=== PATIENT | male | born 1970 | race Two or more races ===

== ENCOUNTER 2024-09-02 03:58 | Emergency (ER) | payer MEDICAID, SELFPAY ==
[2024-09-02 03:59] VITALS: BMI 33.3
[2024-09-02 04:10] VITALS: BP 151/81; PULSE 83; RESP 18; TEMP 36.6; O2SAT 98
--- NOTE | 2024-09-02 04:10 | PD.EDEXREM ---
ED Extremity Problem RME/HPI General Chief complaint: Extremity Problem,Nontraumatic Stated complaint: INGROWN TOENAILS Time Seen by Provider: 09/02/24 04:03 Arrival date/time: 09/02/24 03:58 54 year old male present to emergency room with c/o of toe pain for 3 days. uptodate with tetanus LOCATION: toe SEVERITY: Symptoms are described as being severe with limitations on activities of daily living QUALITY: Symptoms are described as being dull or achy CONTEXT: unknown DURATION/TIMING: The symptoms started approximately 3 days ago and have been constant this then. ASSOCIATED SYMPTOMS: The patient is unable to identify any other associated symptoms. MODIFYING FACTORS: The patient is unable to identify any alleviating or aggravating symptoms. PERTINENT ROS: no fevers, no headache, no neck or chest pain, no unexplained nausea or vomiting, no focal neurological deficits REVIEW OF SYSTEMS: See History of Present Illness - with the exception of those mentioned in the history of present illness, all other systems reviewed and reported as negative GENERAL: In general the patient is awake, interactive, in an emergency department gurney. HEAD/EYES/EARS/NOSE/THROAT: normo-cephalic, atraumatic, mucus membranes are moist, anicteric, palpebral conjunctiva is pink, trachea is midline. NEUROLOGICAL: cranio-facial features are symmetric, moves all four extremities equally without obvious limitations or weakness. EXTREMITY: Left greater toe + dry blood + ingrown nail noted. + tenderness. no tenderness to palpation over the long bones or large joints of the bilateral upper and lower extremities, no joint swelling, no unilateral leg swelling and no peripheral edema. SKIN: warm, dry, well-perfused, no jaundice, no rash, no telangiectasias or petechia. PSYCH: calm, cooperative, no evidence of psychosis or agitation Related Data Home Medications ?Medication ?Instructions ?Recorded ?Confirmed cyclobenzaprine 10 mg tablet 10 mg PO BID PRN Muscle Pain 03/09/22 03/09/22 furosemide 40 mg tablet (Lasix) 40 mg PO QDAY 03/09/22 03/09/22 spironolactone 100 mg tablet 100 mg PO QDAY 03/09/22 03/09/22 Previous Rx's ?Medication ?Instructions ?Recorded tramadol 50 mg tablet 50 mg PO Q8H PRN pain #20 tabs 08/06/23 folic acid 1 mg tablet 1 mg PO QDAY #30 tabs 02/08/24 insulin glargine 100 unit/mL 40 unit (0.4 mL) subcut QDAY #10 mL 02/08/24 subcutaneous solution (Lantus U-100 Insulin) insulin lispro 100 unit/mL 10 unit (0.1 mL) subcut TIDWMEAL 02/08/24 subcutaneous solution #10 mL lactulose 20 gram/30 mL oral 20 g (30 mL) PO TID #3,000 mL 02/08/24 solution metformin 500 mg tablet 1,000 mg (2 x 500 mg) PO BIDWMEAL 02/08/24 #120 tabs thiamine HCl (vitamin B1) 100 mg 100 mg PO QDAY #30 tabs 02/08/24 tablet cephalexin 500 mg tablet 500 mg PO QID #40 tabs 09/02/24 Allergies Allergy/AdvReac Type Severity Reaction Status Date / Time No Known Allergies Allergy Verified 09/02/24 04:02 Course Course Course Narrative: + Ingrown?Left Great Toenail. This is a?recurrent?problem for the patient. Nail Removed not indicated since patient is dm and risk of increase infection outweigh the benefit. pt should follow up with podiatry first dose oral antibiotic Disposition: Discharge home with strict return precautions and advice to follow up with primary care doctor in next 24-48 hours for further evaluation. Quality Measures none Orders Category Date Time Status cephALEXin [Keflex] Med 09/02/24 04:08 Discontinued 500 mg PO X1 ONE Vital Signs Vital signs: Vital Signs Temperature 97.9 F 09/02/24 04:10 Pulse Rate 83 09/02/24 04:10 Respiratory Rate 18 09/02/24 04:10 Blood Pressure 151/81 H 09/02/24 04:10 Pulse Oximetry (%) 98 09/02/24 04:10 Oxygen Delivery Method Room Air 09/02/24 04:10 Extremity Problem Patient data External records reviewed:: [facility] previous records Clinical information provided by:: patient Social determinants that could affect healthcare access:: none (none) Patient has the following chronic illnesses:: dm How is presenting disease/condition affected by chronic disease/condition?: exacerbated by Evaluation data The following diagnostics were reviewed and interpreted by me:: other (specify) Lab and/or radiology exams considered but not ordered:: none Interpretation Summary: none Medications / Prescriptions Medications or Prescriptions considered but not ordered:: none Medication administrations:: Medication Administration History Discontinued Medications Cephalexin HCl (Cephalexin 250 Mg Capsule) 500 mg PO X1 ONE Stop: 09/02/24 04:09 as state above Consultations Consultation(s) initiated? (list below): No Diagnosis Most likely diagnosis given after review of the tests above:: infected ingrown toe nail Admission Indicated Admission indicated?: not indicated Admission Request Was there a request for admission?: No Disposition Plan Disposition Plan: Discharge Discharge Attestation Discharge Attestation: The patient and all family members were given an opportunity to ask questions and understood the discharge instructions. Discharge instructions specifically effects, indications for sooner follow up or return to the emergency department, and the expected course of current diagnosis. Patient condition: Stable Discharge Plan Plan Patient Disposition: HOME (Self Care) Health Concerns: Follow with PMD as directed Take tylenol or motrin as need Return to ED if sx worsen Prescriptions/Referrals Prescriptions/Med Rec: New cephalexin 500 mg tablet 500 mg PO QID Qty: 40 0RF No Action cyclobenzaprine 10 mg Tablet 10 mg PO BID PRN (Reason: Muscle Pain) furosemide [Lasix] 40 mg Tablet 40 mg PO QDAY spironolactone 100 mg Tablet 100 mg PO QDAY tramadol 50 mg tablet 50 mg PO Q8H PRN (Reason: pain) Qty: 20 0RF folic acid 1 mg tablet 1 mg PO QDAY Qty: 30 0RF thiamine HCl (vitamin B1) 100 mg tablet 100 mg PO QDAY Qty: 30 0RF insulin glargine [Lantus U-100 Insulin] 100 unit/mL solution 40 unit subcut QDAY Qty: 10 0RF insulin lispro 100 unit/mL solution 10 unit subcut TIDWMEAL Qty: 10 0RF metformin 500 mg Tablet 1,000 mg PO BIDWMEAL Qty: 120 0RF lactulose 20 gram/30 mL solution 20 g PO TID Qty: 3000 0RF Problem List Clinical Impression: Ingrown left greater toenail Patient/Caregiver Discharge Instructions Education Materials: ED Toenail Ingrown Infec Abx Onl Print Language: Armenian Stand Alone Forms: Tammy Award Info., Patient Portal Info Letter
[2024-09-02] MEDS: cephALEXin 250 MG CAPSULE 500 MG PO (04:23)
== END 2024-09-02 04:26 | disposition home or self-care (01) ==
PROVIDERS: Emergency Provider Emergency Medicine; PCP Family Medicine
DX: L60.0 Ingrowing nail (principal)
CPT/HCPCS: 99282; A9270

== ENCOUNTER 2025-02-21 08:17 | Emergency (ER) | payer MEDICAID, SELFPAY ==
[2025-02-21 08:27] VITALS: BP 149/79; PULSE 86; RESP 20; TEMP 36.9; O2SAT 97; BMI 28.1
--- NOTE | 2025-02-21 08:36 | XR_ITS ---
Examination: CT brain head without contrast. 2-D sagittal coronal reconstructions Date and time of exam:February 21, 2025 0957 hours INDICATIONS: Headaches dizziness weakness beginning 3 days ago CTDI: vol (mGy):49 DLP: (mGycm):988 Technique: Multiple CT axial sections of the brain have been obtained, 5 mm slice thickness. Contrast has not been administered. 2-D sagittal, coronal reconstructions have been obtained Low dose protocols were performed. One or more of the following dose reduction techniques were used; automated exposure control, adjustment of the mA and/or KV according to patient size, use of iterative reconstruction technique. Findings: No significant ventricular enlargement. Frontal atrophy Intra-axial or extra-axial hemorrhage density is not seen. No mass effect or midline shift Basal cisterns are not remarkable. Fourth ventricle is midline. Cranial vault intact. Impression: Negative for acute hemorrhage, mass effect or midline shift Advise clinical correlation follow-up accordingly
--- NOTE | 2025-02-21 08:36 | EKG_ITS ---
[facility] Test Date: 2025-02-21 Pat Name: CARMELINA FORDE Department: Room: - Gender: Male Technician Test Systems: : 1970 Requested By: Armaan Mccain (CHLOE) Order Number: [id number] Reading MD: Armaan Mccain (CHLOE) Measurements Intervals [place] Rate: 81 P: 48 MA: 193 QRS: 20 QRSD: 110 T: 49 QT: 393 QTc: 457 Interpretive Statements SINUS RHYTHM INFERIOR MYOCARDIAL INFARCTION , PROBABLY OLD [40+ ms Q WAVE AND/OR ST/T ABNORMALITY IN II/aVF] Compared to ECG 08/06/2023 12:06:06 No significant changes /store/S0/[id number]/[id number].pdf
--- NOTE | 2025-02-21 08:37 | PD.EDRME ---
Rapid Medical Screening Exam RME Arrival date/time: 02/21/25 08:17 54-year-old male alcoholic presents to the emergency department today for complaints of headache, generalized weakness, nausea and vomiting Chief Complaint: Weakness Vital signs: Vital Signs Temperature 98.5 F 02/21/25 08:27 Pulse Rate 86 02/21/25 08:27 Respiratory Rate 20 02/21/25 08:27 Blood Pressure 149/79 H 02/21/25 08:27 Pulse Oximetry (%) 97 02/21/25 08:27 Oxygen Delivery Method Room Air 02/21/25 08:27
[2025-02-21 09:09] LABS: Collection Type, Urine Clean Catch
[2025-02-21 09:19] LABS: Bacteria,Urine Rare; Bilirubin,Urine Negative (Negative); Blood,Urine Negative (Negative); Clarity,Urine Clear (Clear/Hazy); Color,Urine Yellow (Lt Yel-Yel); Glucose, Urine 4+ (Negative); Ketones,Urine Negative (Negative); Leukocyte Esterase,Urine Negative (Negative); Nitrite,Urine Negative (Negative); PH,Urine 6.5 (5.0-7.0); Protein,Urine Negative (Neg - Trace); RBC,Urine 1 /hpf (0-3); Specific Gravity,Urine 1.016 (1.001-1.035); Squamous Epithelial Cell,Urine < 1 /hpf (0-5); Urobilinogen,Urine Negative mg/dL (0.0-1.0); WBC,Urine < 1 /hpf (0-5)
[2025-02-21 09:22] LABS: Amphetamine/Methamp Scrn,U Negative (Negative); Barbiturate Screen,Urine Negative (Negative); Benzodiazepines Screen,Urine Negative (Negative); Benzoylecgonine Screen, Ur Negative (Negative); Fentanyl Screen,Urine Negative (Negative); Opiate Screen,Urine Negative (Negative); THC Screen,Urine Negative (Negative)
[2025-02-21 10:23] LABS: Base Excess, Venous 7 (-3-3); O2 Saturation, Venous 99 % (96-97); PCO2, Venous 26 mmHg (36-56); PO2, Venous 147 mmHg (15-58); pH, Venous 7.64 (7.33-7.66)
[2025-02-21 10:27] LABS: Basophils # (Auto) 0.1 Thou/mm3 (0.0-0.2); Basophils % (Auto) 2 % (0-2.5); Eosinophils # (Auto) 0.1 Thou/mm3 (0.0-0.5); Eosinophils % (Auto) 2 % (0-10); Hematocrit 36.3 % (41.0-53.0); Immature Granulocytes % (Auto) 0 % (0-0); Lymphocytes # (Auto) 0.7 Thou/mm3 (1.0-4.8); Lymphocytes % (Auto) 31 % (10-50); Mean Corpuscular HGB Conc 35.8 g/dl (31.0-37.0); Mean Corpuscular Hemoglobin 29.5 pg (25.0-35.0); Mean Corpuscular Volume 83 fL (80-100); Monocytes # (Auto) 0.3 Thou/mm3 (0.0-0.8); Monocytes % (Auto) 13 % (0-12); Neutrophils # (Auto) 1.1 Thou/mm3 (1.8-7.7); Neutrophils % (Auto) 51 % (37-80); Nucleated Red Blood Cell % 0 /100 WBC (0); RDW Standard Deviation 53.7 fL (35.1-43.9)
[2025-02-21 10:44] LABS: INR 1.4 (0.9-1.3); Partial Thromboplastin Time 31.4 Seconds (22.0-36.0); Prothrombin Time 15.1 Seconds (9.0-12.2)
[2025-02-21 10:46] LABS: B-Type Natriuretic Peptide < 20 pg/mL (0-100); White Blood Count 2.1 Thou/mm3 (3.8-10.6)
[2025-02-21 10:47] LABS: Platelet Count 11 Thou/mm3 (140-440)
[2025-02-21 11:08] LABS: Alanine Aminotransferase 36 U/L (10-49); Albumin, Serum 3.4 gm/dL (3.5-5.0); Alcohol, Blood Medical 374.8 mg/dL (0-10.0); Alkaline Phosphatase 201 U/L (46-116); Anion Gap 12 (7-16); Aspartate Amino Transferase 75 U/L (0-34); BUN/Creatinine Ratio 6 Ratio (12-20); Bilirubin,Total 3.9 mg/dL (0.3-1.2); Blood Urea Nitrogen < 5 mg/dL (9-23); Calcium 8.4 mg/dL (8.3-10.6); Calcium (Corrected) 8.9 mg/dL (8.5-10.1); Carbon Dioxide 27.5 mMol/L (20.0-31.0); Chloride 96 mMol/L (98-107); Creatinine (Component) 0.8 mg/dL (0.6-1.3); Globulin 3.5 gm/dL (2.3-3.5); Glucose 383 mg/dL (74-106); Magnesium 1.8 mg/dL (1.6-2.6); Osmolality,Calculated 283 (275-295); Potassium 3.6 mMol/L (3.4-5.1); Sodium 135 mMol/L (136-145); Total Protein 6.9 gm/dL (5.7-8.2); Troponin I < 0.020 ng/mL (0.0-0.045); eGFR > 60 See Note
[2025-02-21 11:21] LABS: Path Review Blood Smear Sent to Pathologist; Slide Review Platelets confirmed
[2025-02-21 11:41] LABS: Hepatitis A Antibody IgM Non Reactive (Non React); Hepatitis B Core Antibody IgM Non Reactive (Non React); Hepatitis B Surface Antigen Non Reactive (Non React); Hepatitis C Antibody Non Reactive (Non React)
--- NOTE | 2025-02-21 12:33 | PD.EDWEAK ---
ED Weakness RME/HPI General Chief complaint: Weakness Stated complaint: Weakness, dizziness, dehydrated X 8 days Time Seen by Provider: 02/21/25 12:16 Arrival date/time: 02/21/25 08:17 RME / HPI RME / HPI Narrative: 54-year-old male alcoholic presents to the emergency department today for complaints of headache, generalized weakness, nausea and vomiting. This been ongoing for the last 8 days. Patient is known diabetic and alcoholic. Last drink today consuming more than 3 beers this morning. Patient is denying any gum bleeding, denies any vomiting blood, denies any bleeding per rectum. Patient denies any other complaints no medications taken prior to arrival Related Data Home Medications ?Medication ?Instructions ?Recorded ?Confirmed cyclobenzaprine 10 mg tablet 10 mg PO BID PRN Muscle Pain 03/09/22 03/09/22 furosemide 40 mg tablet (Lasix) 40 mg PO QDAY 03/09/22 03/09/22 spironolactone 100 mg tablet 100 mg PO QDAY 03/09/22 03/09/22 Previous Rx's ?Medication ?Instructions ?Recorded tramadol 50 mg tablet 50 mg PO Q8H PRN pain #20 tabs 08/06/23 folic acid 1 mg tablet 1 mg PO QDAY #30 tabs 02/08/24 insulin glargine 100 unit/mL 40 unit (0.4 mL) subcut QDAY #10 mL 02/08/24 subcutaneous solution (Lantus U-100 Insulin) insulin lispro 100 unit/mL 10 unit (0.1 mL) subcut TIDWMEAL 02/08/24 subcutaneous solution #10 mL lactulose 20 gram/30 mL oral 20 g (30 mL) PO TID #3,000 mL 02/08/24 solution metformin 500 mg tablet 1,000 mg (2 x 500 mg) PO BIDWMEAL 02/08/24 #120 tabs thiamine HCl (vitamin B1) 100 mg 100 mg PO QDAY #30 tabs 02/08/24 tablet cephalexin 500 mg tablet 500 mg PO QID #40 tabs 09/02/24 pantoprazole 40 mg tablet,delayed 40 mg PO QDAY #10 tabs 02/21/25 release (Protonix) prednisone 50 mg tablet 50 mg PO QDAY #7 tabs 02/21/25 Allergies Allergy/AdvReac Type Severity Reaction Status Date / Time No Known Allergies Allergy Verified 02/21/25 08:24 Review of Systems Review of Systems Narrative Review of Systems: Review of system reviewed and within normal limits except mentioned in HPI ED Exam Narrative Physical exam: VITAL SIGNS: Reviewed. GENERAL APPEARANCE: Alert and interactive, follows commands, no acute distress, HEAD AND FACE: Non-traumatic. ENT: PERRL, pink conjunctivitis, eyelid no trauma, Mucous membrane moist. NECK: Supple, nontender, no nuchal rigidity. CHEST: No tenderness, no crepitus, no paradoxical movement, no retractions. LUNGS: Clear, well ventilated, symmetric, no rales, no wheezing, no ronchi, no stridor, good breath sounds bilaterally. HEART: Regular rate, regular rhythm, no murmur, no gallops. ABDOMEN: Soft, positive bowel sounds, nondistended, no guarding, nontender, no rebound, no masses, RECTAL: Deferred. GENITAL: Deferred. NEUROLOGICAL: Gross motor function intact sensory function intact, Appropriate for age. MUSCULOSKELETAL: low back nontender, full range of motion. EXTREMITIES: Nontender, full range of motion. SKIN: Color pink, dry, no rash, no lacerations, no abrasions, no contusions. LYMPHATICS: Deferred. 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 02/21/25 08:36 Active EKG (ED ONLY) *Do not use* NOW Care 02/21/25 08:36 Completed Insert IV NOW Care 02/21/25 12:[address] head/brain wo con Stat Exams 02/21/25 08:36 Completed EKG (ED Only) Stat Exams 02/21/25 08:36 Draft Alcohol, Blood Medical Stat Lab 02/21/25 10:14 Completed B-Type Natriuretic Peptide Stat Lab 02/21/25 10:14 Completed CBC Stat Lab 02/21/25 10:14 Completed Comprehensive Metabolic Panel Stat Lab 02/21/25 10:14 Completed Drug Screen,Urine Stat Lab 02/21/25 08:58 Completed Hepatitis Acute Panel Stat Lab 02/21/25 10:14 Completed Magnesium Stat Lab 02/21/25 10:14 Completed Partial Thromboplastin Time Stat Lab 02/21/25 10:14 Completed Path Review Blood Smear Stat Lab 02/21/25 10:14 Completed Prothrombin Time with INR Stat Lab 02/21/25 10:14 Completed Troponin I Stat Lab 02/21/25 10:14 Completed Urinalysis Stat Lab 02/21/25 08:58 Completed VBG [Venous Blood Gas] Stat Lab 02/21/25 10:14 Completed Sodium Chloride 0.9% 1000 ml [Ns] 1,000 ml Med 02/21/25 12:30 Active IV 999 mls/hr Vital Signs Vital signs: Vital Signs Temperature 98.5 F 02/21/25 08:27 Pulse Rate 86 02/21/25 08:27 Respiratory Rate 20 02/21/25 08:27 Blood Pressure 149/79 H 02/21/25 08:27 Pulse Oximetry (%) 97 02/21/25 08:27 Oxygen Delivery Method Room Air 02/21/25 08:27 Weakness MDM Narrative [facility] Narrative:: 54-year-old male alcoholic presents to the emergency department today for complaints of headache, generalized weakness, nausea and vomiting. This been ongoing for the last 8 days. Patient is known diabetic and alcoholic. Last drink today consuming more than 3 beers this morning. Patient is denying any gum bleeding, denies any vomiting blood, denies any bleeding per rectum. Patient denies any other complaints no medications taken prior to arrival Patient CBC showed leukopenia, of 2.1 hemoglobin is 13 which is normal. Patient clinically was noted to be 11 it has been on the low side for several months due to liver cirrhosis. And patient is actively drinking alcohol. Today his alcohol level was noted to be 374. CT scan of the head came back unremarkable. EKG showed normal sinus rhythm, ventricular rate of [address] segment elevation or depression noted. Patient received IV fluids. Patient will be sent home prednisone Patient data External records reviewed:: None Clinical information provided by:: none Social determinants that could affect healthcare access:: alcohol use Patient has the following chronic illnesses:: # Liver cirrhosis, history of thrombocytopenia, diabetes mellitus How is presenting disease/condition affected by chronic disease/condition?: exacerbated by Evaluation data The following diagnostics were reviewed and interpreted by me:: lab results, radiology exam(s) and EKG tracing(s) Lab and/or radiology exams considered but not ordered:: None Interpretation Summary: See results in MDM Medications / Prescriptions Medications or Prescriptions considered but not ordered:: None Medication administrations:: Medication Administration History Sodium Chloride (Ns) 1,000 mls @ 999 mls/hr IV .Q1H1M ONE Stop: 02/21/25 13:30 Last Admin: 02/21/25 12:49 Dose: 999 mls/hr Documented By: ALY IV fluids Consultations Consultation(s) initiated? (list below): No Diagnosis Weakness Differential Diagnosis: dehydration and other (Severe thrombocytopenia, alcohol intoxication, diabetes mellitus liver cirrhosis) Most likely diagnosis given after review of the tests above:: Severe thrombocytopenia, alcohol intoxication, liver cirrhosis Admission Indicated Admission indicated?: not indicated Explain why admission is indicated or not indicated:: Stable. Platelet transfusion is not needed at this time patient is not actively bleeding. Admission Request Was there a request for admission?: No Disposition Plan Disposition Plan: Discharge Discharge Attestation Discharge Attestation: The patient and all family members were given an opportunity to ask questions and understood the discharge instructions. Discharge instructions specifically effects, indications for sooner follow up or return to the emergency department, and the expected course of current diagnosis. Patient condition: Stable Discharge Plan Plan Patient Disposition: HOME (Self Care) Discharge Disposition comment: Stable Prescriptions/Referrals Prescriptions/Med Rec: New prednisone 50 mg tablet 50 mg PO QDAY Qty: 7 0RF pantoprazole [Protonix] 40 mg tablet,delayed release (DR/EC) 40 mg PO QDAY Qty: 10 0RF No Action cyclobenzaprine 10 mg Tablet 10 mg PO BID PRN (Reason: Muscle Pain) furosemide [Lasix] 40 mg Tablet 40 mg PO QDAY spironolactone 100 mg Tablet 100 mg PO QDAY tramadol 50 mg tablet 50 mg PO Q8H PRN (Reason: pain) Qty: 20 0RF folic acid 1 mg tablet 1 mg PO QDAY Qty: 30 0RF thiamine HCl (vitamin B1) 100 mg tablet 100 mg PO QDAY Qty: 30 0RF insulin glargine [Lantus U-100 Insulin] 100 unit/mL solution 40 unit subcut QDAY Qty: 10 0RF insulin lispro 100 unit/mL solution 10 unit subcut TIDWMEAL Qty: 10 0RF metformin 500 mg Tablet 1,000 mg PO BIDWMEAL Qty: 120 0RF lactulose 20 gram/30 mL solution 20 g PO TID Qty: 3000 0RF cephalexin 500 mg tablet 500 mg PO QID Qty: 40 0RF Referrals: Kevin Forte MD [Primary Care Provider] - In 1 week Problem List Clinical Impression: Alcoholic cirrhosis of liver, Severe thrombocytopenia, Alcoholic intoxication Patient/Caregiver Discharge Instructions Discharge Activity: activity as tolerated Education Materials: Thrombocytopenia, ED Alcohol Intoxication Additional Instructions: Thank you for the opportunity for serving you today. You are stable for discharged . You are advised to: Follow-up with your PCP in 1 to 2 days Return to ED for worsening of symptoms Increase oral fluids Take medication as prescribed Please stop abusing alcohol, your liver is already damaged, As your PCP to refer you to a liver specialist. Print Language: Luxembourgish Stand Alone Forms: Tammy Award Info., Patient Portal Info Letter
[2025-02-21] MEDS: SODIUM CHLORIDE 0.9% 1000 ML 1,000 ML 999 ML IV (12:49)
== END 2025-02-21 14:02 | disposition home or self-care (01) ==
PROVIDERS: Nurse Practitioner Primary Care; Emergency Provider Emergency Medicine; PCP Family Medicine
DX: K70.30 Alcoholic cirrhosis of liver without ascites (principal); F10.929 Alcohol use, unspecified with intoxication, unspecified; D69.6 Thrombocytopenia, unspecified; D72.819 Decreased white blood cell count, unspecified; R51.9 Headache, unspecified; R42 Dizziness and giddiness; R53.1 Weakness; R94.31 Abnormal electrocardiogram [ECG] [EKG]; Y90.8 Blood alcohol level of 240 mg/100 ml or more
CPT/HCPCS: 36415; 70450; 80053; 80074; 80307; 80320; 81001; 82803; 83735; 83880; 84484; 85025; 85610; 85730; 93005; 96360; 99284; J7030; G0480

== ENCOUNTER 2025-06-04 22:25 | Inpatient (IN) | payer MEDICAID, SELFPAY ==
[2025-06-04 22:28] VITALS: BP 159/80; PULSE 62; RESP 14; TEMP 36.2; O2SAT 100
[2025-06-04 22:33] VITALS: PULSE 62; RESP 18; O2SAT 100
--- NOTE | 2025-06-04 22:42 | XR_ITS ---
Examination: CT brain head without contrast. 2-D sagittal coronal reconstructions Date and time of exam: June 05, 2025, 0040 hours INDICATIONS: Altered mental status today CTDI: vol (mGy): 50.3 DLP: (mGycm): 1007 Technique: Multiple CT axial sections of the brain have been obtained, 5 mm slice thickness. Contrast has not been administered. 2-D sagittal, coronal reconstructions have been obtained Low dose protocols were performed. One or more of the following dose reduction techniques were used; automated exposure control, adjustment of the mA and/or KV according to patient size, use of iterative reconstruction technique. Findings: No significant ventricular enlargement. Intra-axial or extra-axial hemorrhage density is not seen. No mass effect or midline shift Basal cisterns are not remarkable. Fourth ventricle is midline. Cranial vault intact. Impression: Negative for acute hemorrhage, mass effect or midline shift Advise clinical correlation and follow-up accordingly
--- NOTE | 2025-06-04 22:44 | XR_ITS ---
EXAMINATION: AP chest single view TECHNIQUE: AP portable upright chest single view Date and time: June 04, 2025, 11:20 p.m., comparison August 06, 2023 MEDICATIONS: Shortness of breath today. FINDINGS: Mild enlargement left ventricle No pneumonia or pulmonary edema The osseous structures are intact IMPRESSION: Negative for aspiration pneumonia
--- NOTE | 2025-06-04 22:45 | PD.EDADULT ---
ED General RME/HPI General Chief complaint: Altered Mental Status Stated complaint: ALTERED Time Seen by Provider: 06/04/25 22:41 Arrival date/time: 06/04/25 22:25 RME / HPI RME / HPI narrative: HPI is limited at this time as patient is poor historian at this time. See MDM for HPI. Patient is communicating with brief sentences and only one-word responses at this time. Related Data Home Medications ?Medication ?Instructions ?Recorded ?Confirmed cyclobenzaprine 10 mg tablet 10 mg PO BID PRN Muscle Pain 03/09/22 03/09/22 furosemide 40 mg tablet (Lasix) 40 mg PO QDAY 03/09/22 03/09/22 spironolactone 100 mg tablet 100 mg PO QDAY 03/09/22 03/09/22 Previous Rx's ?Medication ?Instructions ?Recorded tramadol 50 mg tablet 50 mg PO Q8H PRN pain #20 tabs 08/06/23 folic acid 1 mg tablet 1 mg PO QDAY #30 tabs 02/08/24 insulin glargine 100 unit/mL 40 unit (0.4 mL) subcut QDAY #10 mL 02/08/24 subcutaneous solution (Lantus U-100 Insulin) insulin lispro 100 unit/mL 10 unit (0.1 mL) subcut TIDWMEAL 02/08/24 subcutaneous solution #10 mL lactulose 20 gram/30 mL oral 20 g (30 mL) PO TID #3,000 mL 02/08/24 solution metformin 500 mg tablet 1,000 mg (2 x 500 mg) PO BIDWMEAL 02/08/24 #120 tabs thiamine HCl (vitamin B1) 100 mg 100 mg PO QDAY #30 tabs 02/08/24 tablet cephalexin 500 mg tablet 500 mg PO QID #40 tabs 09/02/24 pantoprazole 40 mg tablet,delayed 40 mg PO QDAY #10 tabs 02/21/25 release (Protonix) prednisone 50 mg tablet 50 mg PO QDAY #7 tabs 02/21/25 Allergies Allergy/AdvReac Type Severity Reaction Status Date / Time No Known Allergies Allergy Verified 06/04/25 22:33 Review of Systems Review of Systems Narrative Review of Systems: ROS is limited at this time as patient is poor historian at this time. ED Exam Narrative Physical exam: General: AAOx1, NAD, disheleved male, body smells like urine, bangladeshi speaking male, overnight, has handcuffs HEENT: Moist mucous membranes, conjunctiva clear, EOMI, PERRLA, Cardiovascular: S1, S2, radial pulses +2 bilat, RRR Pulmonary: CTAB bilat no cough, no wheezing GI: No tenderness to light or deep palpitation, no guarding, rigidity, rebound tenderness or distension Extremities: No presence of trace or pitting edema in lower extremities bilaterally, dorsalis pedis pulses +2 bilaterally, venous stasis present bilat in addition to some ulcers Neuro: AAOx1, no focal motor or sensory deficits in the UE or LE bilat Psych: Concern for malingering Course Quality Measures none Orders Category Date Time Status Bedside COVID-19 Antigen Test NOW Care 06/04/25 22:42 Active EKG (ED ONLY) *Do not use* NOW Care 06/04/25 23:29 Completed In and Out Catheter X1 Care 06/04/25 22:59 Completed Insert IV NOW Care 06/04/25 22:42 Active Saline [Insert IV] NOW Care 06/04/25 23:28 Completed Vital Signs, Non-Routine Q4H Care 06/04/25 22:[address] chest abdomen pelvis wo Stat Exams 06/04/25 23:[address] head/brain wo con Stat Exams 06/04/25 22:42 Taken EKG (ED Only) Stat Exams 06/04/25 23:29 Draft XR chest 1V portable Stat Exams 06/04/25 22:44 Taken ABG [Arterial Blood Gas] Stat Lab 06/05/25 00:27 Completed Acetaminophen Stat Lab 06/04/25 23:09 Completed Alcohol, Blood Medical Stat Lab 06/04/25 23:09 Completed Ammonia Stat Lab 06/04/25 23:09 Completed Amylase Stat Lab 06/04/25 23:09 Completed BNP [B-Type Natriuretic Peptide] Stat Lab 06/04/25 23:09 Completed Bilirubin,Direct Stat Lab 06/04/25 23:09 Completed Blood Culture (Lab) Stat Lab 06/04/25 23:09 Received CBC Stat Lab 06/04/25 23:09 Completed CK [Creatine Kinase] Stat Lab 06/04/25 23:09 Completed CMP [Comprehensive Metabolic Panel] Stat Lab 06/04/25 23:09 Completed CRP [C-Reactive Protein] Stat Lab 06/04/25 23:09 Completed D-Dimer Stat Lab 06/04/25 23:09 Completed Drug Screen,Urine Stat Lab 06/04/25 23:01 Completed FLU A&B [Influenza A & B Rapid Panel] Stat Lab 06/04/25 23:57 Completed Influenza A & B Rapid Panel Stat Lab 06/04/25 22:43 Ordered Lactic Acid [Lactate (Lactic Acid)] Stat Lab 06/04/25 23:09 Completed Lactic Acid [Lactate (Lactic Acid)] Stat Lab 06/05/25 05:00 Ordered Lactic Acid, 3 HR Stat Lab 06/05/25 02:45 Completed Lipase Stat Lab 06/04/25 23:09 Completed Mag [Magnesium] Stat Lab 06/04/25 23:09 Completed PT [Prothrombin Time with INR] Stat Lab 06/04/25 23:09 Completed PTT [Partial Thromboplastin Time] Stat Lab 06/04/25 23:09 Completed Procalcitonin Stat Lab 06/04/25 23:09 Completed Salicylate Stat Lab 06/04/25 23:09 Completed Sed Rate (ESR) Stat Lab 06/04/25 23:09 Completed TSH [Thyroid Stimulating Hormone] Stat Lab 06/04/25 23:09 Completed Troponin I Stat Lab 06/04/25 23:09 Completed Urinalysis, C/S if Indicated Stat Lab 06/04/25 23:01 Completed Venous Blood Gas Stat Lab 06/05/25 00:16 Completed Vitamin B12 Stat Lab 06/04/25 23:09 Completed Furosemide Inj [Lasix Inj] Med 06/05/25 00:08 Discontinued 40 mg IVP X1 ONE Lactulose Syrup [Enulose Syrup] Med 06/05/25 00:06 Discontinued 20 gm PO X1 ONE Lactulose Syrup [Enulose Syrup] Med 06/05/25 01:03 Discontinued 20 gm RI X1 ONE Ondansetron Inj [Zofran Inj] Med 06/04/25 23:29 Discontinued 4 mg IVP X1 ONE Sodium Chloride 0.9% 1000 ml [Ns] 1,000 ml Med 06/04/25 23:29 Discontinued IV 999 mls/hr cefTRIAXone/D5w 1gm IV premix [Rocephin/D5w 1gm IV Med 06/05/25 02:38 Discontinued premix] 1 gm in 50 ml IV X1 Vital Signs Vital signs: Vital Signs Temperature 97.1 F 06/04/25 22:28 Pulse Rate 62 06/04/25 22:28 Respiratory Rate 14 06/04/25 22:28 Blood Pressure 159/80 H 06/04/25 22:28 Pulse Oximetry (%) 100 06/04/25 22:28 Oxygen Delivery Method Room Air 06/04/25 22:28 Discharge Plan Plan Patient Disposition: Admit Acute Care w/in Hospital Prescriptions/Referrals Prescriptions/Med Rec: No Action cyclobenzaprine 10 mg Tablet 10 mg PO BID PRN (Reason: Muscle Pain) furosemide [Lasix] 40 mg Tablet 40 mg PO QDAY spironolactone 100 mg Tablet 100 mg PO QDAY tramadol 50 mg tablet 50 mg PO Q8H PRN (Reason: pain) Qty: 20 0RF folic acid 1 mg tablet 1 mg PO QDAY Qty: 30 0RF thiamine HCl (vitamin B1) 100 mg tablet 100 mg PO QDAY Qty: 30 0RF insulin glargine [Lantus U-100 Insulin] 100 unit/mL solution 40 unit subcut QDAY Qty: 10 0RF insulin lispro 100 unit/mL solution 10 unit subcut TIDWMEAL Qty: 10 0RF metformin 500 mg Tablet 1,000 mg PO BIDWMEAL Qty: 120 0RF lactulose 20 gram/30 mL solution 20 g PO TID Qty: 3000 0RF cephalexin 500 mg tablet 500 mg PO QID Qty: 40 0RF prednisone 50 mg tablet 50 mg PO QDAY Qty: 7 0RF pantoprazole [Protonix] 40 mg tablet,delayed release (DR/EC) 40 mg PO QDAY Qty: 10 0RF Referrals: Pilar([facility])Elzbieta MD [Primary Care Provider] - In 1 week Problem List Clinical Impression: Cirrhosis of liver Patient/Caregiver Discharge Instructions Print Language: Armenian Stand Alone Forms: Tammy Award Info., Patient Portal Info Letter MDM Narrative MDM hospital course (for use when minimal MDM required): 2309: Broad workup for altered mental status with head CT, labs, B12, TSH, also ordered CT chest abdomen pelvis for imaging. Also ordered EKG as well, gave fluid bolus in addition to Zofran. Concern for hyperammonemia, also ordered ammonia due to history of cirrhosis. Also ordered urine drug screen in addition to serum toxicology studies. 0010: Ammonia level reviewed at 212, will initiate lactulose in addition to Lasix [address] IV. Pending head CT. Pending Urine studies. Plt count reviewed 28. INR elevated, B12 elevated, TSH wnl. 0220: CT imaging reviewed which showed cirrhosis and splenomegaly, cholelithiasis with no evidence of cholecystitis. Gave additional 1L , Rocephin and Lactulose RI as pt failed swallow screen. 0237: UDS shows benzodiazepines. Spoke with hospitalist team and they will discuss case for admission. 0330: Hospitalist team accepts patient for admission. EKG Interpretation EKG #1: EKG Interpretation: Sinus rhythm, heart rate [address] changes, QT 471 Medication Administration(s) Medication Administration History Discontinued Medications Furosemide (Furosemide Inj 10 Mg/Ml 4ml Vial) 40 mg IVP X1 ONE Stop: 06/05/25 00:09 Last Admin: 06/05/25 00:50 Dose: 40 mg Documented By: OTTO Sodium Chloride (Ns) 1,000 mls @ 999 mls/hr IV .Q1H1M ONE Stop: 06/05/25 00:29 Last Infusion: 06/05/25 01:48 Dose: Infused Documented By: Admin: 06/04/25 23:40 Dose: 999 mls/hr Documented By: ADILSON Ceftriaxone Sodium/Dextrose (Rocephin/D5w 1gm Iv Premix) 1 gm in 50 mls @ 100 mls/hr IV X1 ONE Stop: 06/05/25 03:07 Last Admin: 06/05/25 03:14 Dose: 100 mls/hr Documented By: ADILSON Lactulose (Lactulose Syrup 20 Gm/30 Ml Udc) 20 gm PO X1 ONE; Protocol Stop: 06/05/25 00:07 Last Admin: 06/05/25 00:59 Dose: Not Given Documented By: BD Non-Admin Reason: Unable to Swallow Lactulose (Lactulose Syrup 20 Gm/30 Ml Udc) 20 gm RI X1 ONE; Protocol Stop: 06/05/25 01:04 Last Admin: 06/05/25 01:14 Dose: 20 gm Documented By: OTTO Ondansetron HCl (Ondansetron Inj 2 Mg/Ml Inj 2 Ml) 4 mg IVP X1 ONE; Protocol Stop: 06/04/25 23:30 Last Admin: 06/04/25 23:40 Dose: 4 mg Documented By: ADILSON Consultations/Discussions re: Management Consult #1: Date/time: 06/05/25 2:39 am Physician, specialty, service, details: 0239: Spoke with hospitalist team and they will discuss case for admission. 0330: Hospitalist team accepts patient for admission.
[2025-06-04 22:52] VITALS: BMI 28.1
[2025-06-04 23:27] LABS: Lactate (Lactic Acid) 2.1 mMol/L (0.4-2.0)
[2025-06-04 23:29] LABS: Collection Type, Urine Catheter
--- NOTE | 2025-06-04 23:29 | EKG_ITS ---
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
--- NOTE | 2025-06-04 23:29 | XR_ITS ---
Examination: CT chest, without intravenous contrast. CT abdomen, without intravenous contrast. CT pelvis, without intravenous contrast. 2-D sagittal and coronal reconstructions. 3-D reconstructions. Date and time of exam: June 05, 2025, 0041 hours INDICATIONS: Chest pain shortness of breath abdominal pain today CTDI vol (mgy) 14 DLP (MGycm) 1109 Technique: Multiple CT images, 3.0 mm slice thickness, obtained chest, abdomen, pelvis, with the high-resolution 64 slice scanner.. Sagittal and coronal 2-D reconstructions are obtained. 3-D reconstructions Low dose protocols were performed. One or more of the following dose reduction techniques were used; automated exposure control, adjustment of the mA and/or KV according to patient size, use of iterative reconstruction technique. Findings: No thoracic aortic aneurysmal dilatation. Pulmonary artery segments are not enlarged. Mild enlargement cardiac contour with mild vascular congestion. No lobar pneumonia. Cirrhosis, liver nodular in contour Significant splenomegaly Gallstones No bowel obstruction No hydronephrosis Abdominal aorta is normal in size No diverticulitis Intact urinary bladder No prostatomegaly Small fat-containing right inguinal hernia Moderate osteopenia IMPRESSION: No lobar pneumonia or pulmonary edema Cirrhosis Significant splenomegaly Cholelithiasis
[2025-06-04 23:35] LABS: Basophils # (Auto) 0.0 Thou/mm3 (0.0-0.2); Basophils % (Auto) 1 % (0-2.5); Eosinophils # (Auto) 0.1 Thou/mm3 (0.0-0.5); Eosinophils % (Auto) 2 % (0-10); Hematocrit 38.7 % (41.0-53.0); Hemoglobin 12.8 g/dL (13.5-16.0); Immature Granulocytes Auto 0.01 Thou/mm3 (0.00-0.00); Lymphocytes # (Auto) 0.8 Thou/mm3 (1.0-4.8); Lymphocytes % (Auto) 25 % (10-50); Mean Corpuscular HGB Conc 33.1 g/dl (31.0-37.0); Mean Corpuscular Hemoglobin 26.9 pg (25.0-35.0); Mean Corpuscular Volume 81 fL (80-100); Monocytes # (Auto) 0.4 Thou/mm3 (0.0-0.8); Monocytes % (Auto) 13 % (0-12); Neutrophils # (Auto) 1.8 Thou/mm3 (1.8-7.7); Neutrophils % (Auto) 59 % (37-80); Nucleated Red Blood Cell # 0.00 Thou/mm3 (0.00-0.00); Nucleated Red Blood Cell % 0 /100 WBC (0); RDW Standard Deviation 48.0 fL (35.1-43.9); Red Blood Count 4.76 Miln/mm3 (4.50-5.90); White Blood Count 3.0 Thou/mm3 (3.8-10.6)
[2025-06-04] MEDS: SODIUM CHLORIDE 0.9% 1000 ML 1,000 ML 999 ML IV (23:40)
[2025-06-04] MEDS: ONDANSETRON INJ 2 MG/ML INJ 2 ML 4 MG IVP (23:40)
[2025-06-04 23:49] LABS: Platelet Count 28 Thou/mm3 (140-440); Sed Rate (ESR) 4 mm/hr (0-20)
[2025-06-04 23:50] LABS: Ammonia 212 uMol/L (11-32)
[2025-06-04 23:51] LABS: Vitamin B12 1498 pg/mL (211-911)
[2025-06-04 23:52] VITALS: BP 144/74; PULSE 77; RESP 16; TEMP 36.7; O2SAT 100
[2025-06-04 23:53] LABS: Bilirubin,Urine Negative (Negative); Blood,Urine Negative (Negative); Clarity,Urine Clear (Clear/Hazy); Color,Urine Yellow (Lt Yel-Yel); Culture Indicated,Urine Not Indicated; Glucose, Urine 4+ (Negative); Ketones,Urine Negative (Negative); Leukocyte Esterase,Urine Negative (Negative); Nitrite,Urine Negative (Negative); PH,Urine 7.0 (5.0-7.0); Protein,Urine Negative (Neg - Trace); RBC,Urine 1 /hpf (0-3); Specific Gravity,Urine 1.026 (1.001-1.035); Squamous Epithelial Cell,Urine 8 /hpf (0-5); Urobilinogen,Urine 4.0 mg/dL (0.0-1.0); WBC,Urine 2 /hpf (0-5)
[2025-06-04 23:55] LABS: Acetaminophen < 2.0 mcg/mL (10.0-20.0); Alcohol, Blood Medical < 3.0 mg/dL (0-10.0); Amylase 90 U/L (30-118); Bilirubin,Direct 0.9 mg/dL (0.0-0.3); C-Reactive Protein < 0.5 mg/dL (0.0-0.9); Creatine Kinase 43 U/L (34-171); D-Dimer 525 ng/mL (<600); Salicylate < 3.0 mg/dL
[2025-06-04 23:57] LABS: Alanine Aminotransferase 29 U/L (10-49); Albumin, Serum 3.0 gm/dL (3.5-5.0); Albumin/Globulin Ratio 1.0 (1.2-2.2); Alkaline Phosphatase 128 U/L (46-116); Anion Gap 11 (7-16); Aspartate Amino Transferase 36 U/L (0-34); BUN/Creatinine Ratio 9 Ratio (12-20); Bilirubin,Total 2.0 mg/dL (0.3-1.2); Blood Urea Nitrogen 6 mg/dL (9-23); Calcium 8.4 mg/dL (8.3-10.6); Calcium (Corrected) 9.2 mg/dL (8.5-10.1); Carbon Dioxide 20.5 mMol/L (20.0-31.0); Chloride 108 mMol/L (98-107); Creatinine (Component) 0.7 mg/dL (0.6-1.3); Estimated Creatinine Clearance 124.8 mL/min (>60); Globulin 2.9 gm/dL (2.3-3.5); Glucose 132 mg/dL (74-106); Lipase 38 U/L (12-53); Magnesium 1.7 mg/dL (1.6-2.6); Osmolality,Calculated 277 (275-295); Potassium 3.4 mMol/L (3.4-5.1); Procalcitonin 0.10 ng/ml (0.0-0.49); Sodium 139 mMol/L (136-145); Thyroid Stimulating Hormone 1.48 uIU/mL (0.55-4.78); Total Protein 5.9 gm/dL (5.7-8.2); Troponin I < 0.020 ng/mL (0.0-0.045); eGFR > 60 See Note
[2025-06-05] VITALS (10 sets, daily range): BP systolic 120–165; BP diastolic 64–89; PULSE 66–83; RESP 16–19; TEMP 36.2–36.8; O2SAT 98–100; BMI 28.1
[2025-06-05] LABS: INR 1.5 (0.9-1.3); Partial Thromboplastin Time 30.6 Seconds (22.0-36.0); Prothrombin Time 15.1 Seconds (9.0-12.2)
[2025-06-05 00:07] LABS: B-Type Natriuretic Peptide < 20 pg/mL (0-100)
[2025-06-05 00:24] LABS: Base Excess, Venous -1 (-3-3); O2 Saturation, Venous 92 % (96-97); PCO2, Venous 32 mmHg (36-56); PO2, Venous 60 mmHg (15-58); pH, Venous 7.44 (7.33-7.66)
[2025-06-05 00:29] LABS: Influenza A Ag Negative; Influenza B Ag Negative
[2025-06-05 00:32] LABS: Allen Test Performed/OK; Base Excess -3 (-3-3); HCO3 19 mEq/L (20-26); Inspired Oxygen, FIO2 21 %; O2 Saturation 99 % (91-98); PCO2 26 mmHg (32.0-48.0); PO2 119 mmHg (83-108); Puncture Site Right Radial; pH, Arterial 7.48 (7.35-7.45)
[2025-06-05] MEDS: FUROSEMIDE INJ 10 MG/ML 4ML VIAL 40 MG IVP (00:50)
[2025-06-05 01:05] LABS: Slide Review Platelets confirmed
[2025-06-05] MEDS: LACTULOSE SYRUP 20 GM/30 ML UDC PR ×2 (01:14→05:59)
--- NOTE | 2025-06-05 01:27 | PRELIM_ITS ---
CT scan of the head without intravenous contrast (axial sections with sagittal and coronal reformats) June 05, 2025 0040 hours Clinical history: Altered mental status. Radiation Dose: Total exam DLP 1010 mGy/cm Comparison: No prior study is available for comparison. Findings: There is no evidence of intracranial hemorrhage, mass effect or midline shift. There are periventricular white matter hypodensities, compatible with chronic small vessel ischemia. There is mild volume loss. The calvarium is unremarkable. There are small retention cysts or polyps in bilateral maxillary sinuses. The mastoid air cells and other visualized paranasal sinuses are clear. Impression: No evidence of intracranial hemorrhage, mass effect or midline shift. Periventricular chronic small vessel ischemia and volume loss. Report Electronically Signed By: Geovany Cobb 06/05/2025 1:26:45 AM [EST]
--- NOTE | 2025-06-05 02:12 | PRELIM_ITS ---
CT scan of the chest, abdomen and pelvis without intravenous contrast (axial sections with sagittal, coronal and 3D reformats) June 05, 2025 at 0041 hours Clinical History: Shortness of breath and abdominal pain. Comparison: Reference is made to the prior ultrasound study dated February 03, [address] abdomen and pelvis dated August 08, 2021. Findings: There is peribronchial thickening in the lungs. There is no pleural effusion or pneumothorax. The aorta and its branches demonstrate mild atheromatous calcification without evidence of aneurysm. No evidence of mediastinal mass or lymphadenopathy. There is no pericardial effusion. The liver demonstrates a nodular contour with enlarged caudate lobe. Multiple calculi are noted within the gallbladder, without evidence of gallbladder wall thickening or pericholecystic fluid. The spleen is enlarged measuring 17.9 cm. There are multiple periportal, peripancreatic, splenic hilar, and r etroperitoneal collaterals. The pancreas, adrenals and kidneys are unremarkable on this noncontrast study. No evidence of bowel obstruction. There are multiple colonic diverticula without evidence of diverticulitis. Abundant amount of fecal material is present in the colon. The appendix is not visualized. There are small fat containing bilateral inguinal and umbilical hernias. The urinary bladder is unremarkable. There is no free fluid or free air. The bones are osteopenic. Degenerative changes are identified in the spine. Impression: 1. Peribronchial thickening in the lungs, which may be related to chronic/reactive airway disease. 2. Cirrhosis of liver with splenomegaly and portal hypertension. 3. Cholelithiasis without evidence of acute cholecystitis. 4. Other findings as described above. Report Electronically Signed By: Geovany Cobb 06/05/2025 2:11:35 AM [EST]
[2025-06-05 02:26] LABS: Reflex Lactate? Y
[2025-06-05 02:30] LABS: Amphetamine/Methamp Scrn,U Negative (Negative); Barbiturate Screen,Urine Negative (Negative); Benzodiazepines Screen,Urine Positive (Negative); Benzoylecgonine Screen, Ur Negative (Negative); Fentanyl Screen,Urine Negative (Negative); Opiate Screen,Urine Negative (Negative); THC Screen,Urine Negative (Negative)
[2025-06-05 02:49] LABS: Lactic Acid, 3 HR 3.2 mMol/L (0.4-2.0)
[2025-06-05] MEDS: cefTRIAXone/D5w 1gm IV premix 1 GM/50 ML BAG IV (03:14)
--- NOTE | 2025-06-05 03:48 | ESHP_ITS ---
<Statement entered by Navin Martin MD - 06/05/25 16:11> I have discussed and was present for the essential components of the history, physical examination, diagnosis, and treatment plan with the resident. I agree with the patient's care as documented by the resident and amended herein by me. Navin Martin MD FACP. Documentation for date of: 06/05/25 HPI History of Present Illness History of present illness: Mr. 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 Patient was BIBA from long-term, some history provided by DO[employer] agent at bedside. Patient is a poor historian and interview was limited by patient's mentation. Patient was getting his BG check when he was found to be altered, BG was in 120s. Patient reports that he has generalized abdominal pain. Denies chest pain/pressure, recent BM, nausea, vomiting, dark stools. ED course: VSS. BP 130-150s / 70-80s. Labs significant for pancytopenia WBC 3, hgb 12, HCT 38, plt 28. BG 132. Lactic acid 2.1. PT 15.1, INR 1.5. AST 36, ALT WNL, Alk phos 128, total bili 2, direct bili 0.9. Ammonia 212. Troponin negative, TSH WNL, B12 elevated 1498, lipase and amylase WNL, procal negative. UDS + benzo. EtOH <3, Acetaminophen <2, salicyalates <3. COVID and flu negative. EKG NSR HR 71. Prolonged QTc 521. CTh negative for acute hemorrhage. CXR cardiac silhouette enlargement. CT a/p showed cholecystitis, cirrhosis, and lung wall thickening most likely chronic. Meds given: 1L NS, Zofran 4 mg IV x1, Lasix 40 mg IV x1, Lactulose 20 mg IN x1 as patient failed swallow study, ceftriaxone 1g IV x1 for SBP ppx. PMHx: ESLD 2/2 EtOH and hep C, portal hypertension, splenomegaly, EtOH use disorder c/b withdrawal seizures, T2DM, cholelithiasis, R inguinal hernia Allergies: NKDA Home meds: Lactulose (unknown dose), insulin (unknown regimen) SgHx: none reported SHx: Denies smoking, recreational drug use. Drinks 6 pack of beer daily. Came from long-term. FHx: T2DM Review of Systems Review of Systems Narrative Review of Systems: 14 point ROS negative other than HPI Exam Vital Signs Temp Pulse Resp BP Pulse Ox O2 Del Method 98.1 F 72 16 139/76 H 100 Room Air 06/04/25 23:52 06/05/25 00:50 06/04/25 23:52 06/05/25 00:50 06/04/25 23:52 06/04/25 23:52 Narrative Exam General: No acute distress, thin Eye: PERRL, EOMI, normal conjunctiva, no scleral icterus HENT: Normocephalic, atraumatic, normal hearing, moist oral mucosa Neck: Supple, non-tender, no JVD, no lymphadenopathy Lungs: Clear to auscultation bilaterally, non-labored respirations, symmetric chest rise, no use of accessory muscles Heart: Normal S1 and S2, no S3 or S4 appreciated. Normal rate and regular rhythm, no murmurs, rubs gallops, or edema. Peripheral pulses intact bilaterally, capillary refill brisk distally Abdomen: Soft, non-tender, distended, normal bowel sounds. No guarding or rebound tenderness. Musculoskeletal: Normal range of motion and strength, no tenderness or swelling Skin: Skin is warm, dry, no rashes or lesions. Neurologic: Alert, awake and oriented to person, place. Not oriented to date, situation. CN II-XII grossly intact. No focal neuro deficits. No signs of meningeal irritation noted. Psychiatric: Cooperative, appropriate mood and affect Results: Labs 06/04/25 23:09 06/04/25 23:09 Labs: Short CBC 06/04/25 Range/Units 23:09 WBC 3.0 L (3.8-10.6) Thou/mm3 Hgb 12.8 L (13.5-16.0) g/dL Hct 38.7 L (41.0-53.0) % Plt Count 28 L* (140-440) Thou/mm3 BMP 06/04/25 23:09 Sodium 139 Potassium 3.4 Chloride 108 H Carbon Dioxide 20.5 BUN 6 L Creatinine 0.7 Glucose 132 H Calcium 8.4 Cardiac Enzymes 06/04/25 Range/Units 23:09 Total Creatine Kinase 43 (34-171) U/L Troponin I < 0.020 (0.0-0.045) ng/mL Liver Function 06/04/25 Range/Units 23:09 Total Bilirubin 2.0 H (0.3-1.2) mg/dL Direct Bilirubin 0.9 H (0.0-0.3) mg/dL AST 36 H (0-34) U/L ALT 29 (10-49) U/L Alkaline Phosphatase 128 H (46-116) U/L Albumin 3.0 L (3.5-5.0) gm/dL Urine 06/04/25 Range/Units 23:01 Urine Color Yellow (Lt Yel-Yel) Urine Clarity Clear (Clear/Hazy) Urine pH 7.0 (5.0-7.0) Ur Specific [place] 1.026 (1.001-1.035) Urine Protein Negative (Neg - Trace) Urine Glucose (UA) 4+ A (Negative) ABG Interpretation ABG results: 06/04/25 06/05/25 23:09 00:27 ABG pH 7.48 H ABG pCO2 26 L ABG pO2 119 H ABG HCO3 19 L ABG O2 Saturation 99 H ABG Base Excess -3 VBG pH 7.44 VBG pCO2 32 L VBG pO2 60 H VBG Base Excess -1 Quality Measures Quality Measures none Medications Home Medications and Allergies Home Medications ?Medication ?Instructions ?Recorded ?Confirmed ?Type cyclobenzaprine 10 mg tablet 10 mg PO BID PRN Muscle P ain 03/09/22 03/09/22 History furosemide 40 mg tablet (Lasix) 40 mg PO QDAY 03/09/22 03/09/22 History spironolactone 100 mg tablet 100 mg PO QDAY 03/09/22 0 03/09/22 History Allergies Allergy/AdvReac Type Severity Reaction Status Date / Time No Known Allergies Allergy Verified 06/04/25 22:33 Visit Medications Furosemide (Furosemide Inj 10 Mg/Ml 4ml Vial) 40 mg IVP QDAY SUZANNE Stop: 07/05/25 08:59 Heparin Sodium (Porcine) (Heparin Sod Inj 5000 Unit/Ml Vial) 5,000 unit SC Q8HR SUAZNNE Stop: 06/19/25 05:59 Lactated Ringer's (Lactated Ringers) 500 mls @ 250 mls/hr IV .Q2H ONE Stop: 06/05/25 05:44 Ibuprofen (Ibuprofen Tab 400 Mg Tablet) 400 mg PO Q6HR PRN PRN Reason: Fever > 100.3 Stop: 07/05/25 03:30 Ibuprofen (Ibuprofen Tab 600 Mg Tablet) 600 mg PO Q6H PRN PRN Reason: PAIN SCALE 1-3 (mild Stop: 07/05/25 03:30 Lactulose (Lactulose Syrup 20 Gm/30 Ml Udc) 20 gm IN TID SUZANNE; Protocol Stop: 07/05/25 05:59 Rifaximin (Rifaximin 550 Mg Tablet) 550 mg PO BID SUZANNE Stop: 06/12/25 08:59 Spironolactone (Spironolactone 25 Mg Tablet) 100 mg PO DAILY SUZANNE Stop: 07/05/25 08:59 Discontinued Medications Furosemide (Furosemide Inj 10 Mg/Ml 4ml Vial) 40 mg IVP X1 ONE Stop: 06/05/25 00:09 Last Admin: 06/05/25 00:50 Dose: 40 mg Sodium Chloride (Ns) 1,000 mls @ 999 mls/hr IV .Q1H1M ONE Stop: 06/05/25 00:29 Last Infusion: 06/05/25 01:48 Dose: Infused Ceftriaxone Sodium/Dextrose (Rocephin/D5w 1gm Iv Premix) 1 gm in 50 mls @ 100 mls/hr IV X1 ONE Stop: 06/05/25 03:07 Last Admin: 06/05/25 03:14 Dose: 100 mls/hr Lactulose (Lactulose Syrup 20 Gm/30 Ml Udc) 20 gm PO X1 ONE; Protocol Stop: 06/05/25 00:07 Last Admin: 06/05/25 00:59 Dose: Not Given Lactulose (Lactulose Syrup 20 Gm/30 Ml Udc) 20 gm IN X1 ONE; Protocol Stop: 06/05/25 01:04 Last Admin: 06/05/25 01:14 Dose: 20 gm Ondansetron HCl (Ondansetron Inj 2 Mg/Ml Inj 2 Ml) 4 mg IVP X1 ONE; Protocol Stop: 06/04/25 23:30 Last Admin: 06/04/25 23:40 Dose: 4 mg Assessment & Plan Plan Mr. 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 Admitted for hepatic encephalopathy. Patient failed swallow study, pending speech eval. 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 No BM recently. No s/sx bleeding Ammonia 212, Tbili 2, direct bili 0.9, AST 36, ALT 29, alk phos 128. Synthetic liver dysfunction present - WBC 3, hgb 12.8, plt 28, PT 15.1, INR 1.5 Given Lasix 40 mg IV x1, lactulose 20 mg IN x1, Ceftriaxone 1 g IV x1 Failed bedside swallow study in ED MELD-Na: 14 --> <2% 90 day mortality Child-Pérez: 9 --> class B Plan: - NPO. Pending speech eval - Lactulose 20 mg TID IN - Lasix 40 mg IV daily - Spironolactone 100 mg PO daily when no longer NPO - Rifaximin 550 mg PO BID when no longer NPO - CTM for s/sx GI bleed, daily CBC - Transfuse pRBC if hgb <7 - Transfuse plt if plt <10 to prevent spontaneous hemorrhage - Aspiration precautions - Pending blood cx #Elevated lactic acid VSS. Given 1L NS in ED LA 2.1 --> 3.2 Plan: - 250 mL LR bolus - Trend lactic acid #Type 2 diabetes mellitus Home med: Insulin (unknown regimen) Plan: - SSI with q6h BG checks #EtOH use disorder #Polysubstance use disorder Drinks 6 pack beer daily UDS + benzo Plan: - Clinical Laboratory Aide patient on cessation Checklist Dispo: Admit to med surg for management of hepatic encephalopathy Diet: NPO. Pending speech eval Bowel Reg: lactulose 20 mg IN TID VTE ppx: none, plt 28 GI ppx: n/a Pain mgmt: Ibuprofen PRN Code status: full Plan discussed with Dr. Lopez and Dr. Mario Zapien MD PGY1
[2025-06-05] MEDS: RINGERS LACTATED 1000 ML 1,000 ML 250 ML IV (04:25)
[2025-06-05 05:12] LABS: Lactate (Lactic Acid) 3.0 mMol/L (0.4-2.0)
[2025-06-05 05:21] LABS: Basophils # (Auto) 0.0 Thou/mm3 (0.0-0.2); Basophils % (Auto) 1 % (0-2.5); Eosinophils # (Auto) 0.0 Thou/mm3 (0.0-0.5); Eosinophils % (Auto) 1 % (0-10); Hematocrit 40.9 % (41.0-53.0); Hemoglobin 13.7 g/dL (13.5-16.0); Immature Granulocytes Auto 0.00 Thou/mm3 (0.00-0.00); Lymphocytes # (Auto) 0.6 Thou/mm3 (1.0-4.8); Lymphocytes % (Auto) 17 % (10-50); Mean Corpuscular HGB Conc 33.5 g/dl (31.0-37.0); Mean Corpuscular Hemoglobin 27.4 pg (25.0-35.0); Mean Corpuscular Volume 82 fL (80-100); Monocytes # (Auto) 0.4 Thou/mm3 (0.0-0.8); Monocytes % (Auto) 12 % (0-12); Neutrophils # (Auto) 2.3 Thou/mm3 (1.8-7.7); Neutrophils % (Auto) 70 % (37-80); Nucleated Red Blood Cell # 0.00 Thou/mm3 (0.00-0.00); Nucleated Red Blood Cell % 0 /100 WBC (0); RDW Standard Deviation 48.1 fL (35.1-43.9); Red Blood Count 5.00 Miln/mm3 (4.50-5.90); White Blood Count 3.3 Thou/mm3 (3.8-10.6)
--- NOTE | 2025-06-05 05:26 | PC.NURSE ---
approx at 0200pm patient was found soiled. this rn with help from [address] a full incontience care. skin was assessed with no signs of breakdown. pt was cleaned thoroughly and redressed w/ a clean gown. bed linens were changed. pt was repositioned comfortable. pt tolerated well
--- NOTE | 2025-06-05 05:28 | PC.NURSE ---
approx at 0400 patient was found soiled. this rn with help from tech performed a full incontience care. pt was cleaned thoroughly and redressed w/ a clean gown. bed linens were changed. pt was repositioned comfortable. pt tolerated well
[2025-06-05 05:51] LABS: Alanine Aminotransferase 29 U/L (10-49); Albumin, Serum 3.0 gm/dL (3.5-5.0); Albumin/Globulin Ratio 1.0 (1.2-2.2); Alkaline Phosphatase 110 U/L (46-116); Anion Gap 13 (7-16); Aspartate Amino Transferase 35 U/L (0-34); BUN/Creatinine Ratio 7 Ratio (12-20); Bilirubin,Total 2.4 mg/dL (0.3-1.2); Blood Urea Nitrogen 5 mg/dL (9-23); Calcium 8.2 mg/dL (8.3-10.6); Calcium (Corrected) 9.0 mg/dL (8.5-10.1); Carbon Dioxide 18.1 mMol/L (20.0-31.0); Chloride 111 mMol/L (98-107); Creatinine (Component) 0.7 mg/dL (0.6-1.3); Estimated Creatinine Clearance 124.8 mL/min (>60); Globulin 3.0 gm/dL (2.3-3.5); Glucose 133 mg/dL (74-106); Magnesium 1.7 mg/dL (1.6-2.6); Osmolality,Calculated 282 (275-295); Potassium 3.3 mMol/L (3.4-5.1); Sodium 142 mMol/L (136-145); Total Protein 6.0 gm/dL (5.7-8.2); eGFR > 60 See Note
[2025-06-05 06:08] LABS: Platelet Count 27 Thou/mm3 (140-440)
[2025-06-05 07:13] LABS: Lactate (Lactic Acid) 2.2 mMol/L (0.4-2.0)
[2025-06-05 08:07] LABS: Reflex Lactate? Y
[2025-06-05 08:33] LABS: Influenza A Ag Negative; Influenza B Ag Negative
--- NOTE | 2025-06-05 09:28 | ESPR_ITS ---
<Statement entered by Claire Mckeon MD - 06/10/25 12:11> I reviewed above note and agree with findings and plans. I have also personally examined the patient with medicine team and went over assessment and plan with medical team including dietary internship and resident physician. <Statement entered by Sage Coon MD - 06/05/25 16:41> I saw and examined patient personally and supervised PGY 1 resident, Dr. Connolly with formulating a management plan. I agree with the documentation with the exceptions as listed below. Mr. 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 Admitted for hepatic encephalopathy. Problem list: 1. Altered mental status secondary to hepatic encephalopathy 2. Decompensated alcoholic cirrhosis with thrombocytopenia, coagulopathy and portal hypertension 3. Lactic acidosis 4. Primary hypertension 5. Insulin-dependent diabetes mellitus type 2 6. History of alcohol dependence Patient presented with altered [facility] status [facility]. He had history of alcohol use dependence in the past but uncertain if he has been drinking while in penitentiary. Most likely he has been abstinent for at least the timeframe he was in penitentiary. Low risk of alcohol withdrawal so CIWA protocol will not be started at this point. For patient's hepatic encephalopathy he was started on lactulose 20 mg p.o. 4 times daily. His ammonia level on discharge was 212. He is also on rifaximin 550 mg p.o. twice daily. For his ascites he is on his home dose of spironolactone 100 mg p.o. daily and furosemide 20 mg IV daily. Patient's lactic acid was mildly elevated at 3 on admission which downtrended to 2.8. Most likely this is secondary to his end-stage liver disease. Patient has no signs of ischemia and MAP has been >65 throughout his admission. We will no longer be trending lactate. Once patient's mentation improves and labs and vitals remained stable, anticipate discharge within 24-48 hours to penitentiary. Plan of care discussed with Attending Dr. Mike Coon MD PGY 2 Disclaimer: This note was dictated by speech recognition. Minor errors in java engineer may be present due to voice recognition software. Documentation for date of: 06/05/25 Subjective Subjective Interval history: Patient examined bedside, labs reviewed. AOX1-2, knows his name, at times knows his location, able to give parts of the date but is unsure of the year, also unsure of why he is in the hospital. Denies use of benzos, nausea, vomiting, diarrhea, dizziness fevers, chills, night sweats, abdominal pain. Exam Vital Signs Temp Pulse Resp BP Pulse Ox O2 Del Method 98.2 F 66 16 139/73 H 100 Room Air 06/05/25 07:33 06/05/25 07:33 06/05/25 07:33 06/05/25 07:33 06/05/25 07:33 06/05/25 07:33 Narrative Exam General: No acute distress, no jaundice appreciated Eye: PERRL, EOMI, normal conjunctiva, no scleral icterus HENT: Normocephalic, atraumatic, normal hearing, moist oral mucosa Neck: Supple, non-tender, no JVD, no lymphadenopathy Lungs: Clear to auscultation bilaterally, non-labored respirations, symmetric chest rise, no use of accessory muscles Heart: Normal S1 and S2, no S3 or S4 appreciated. Normal rate and regular rhythm, no murmurs, rubs gallops, or edema. Peripheral pulses intact bilaterally, capillary refill brisk distally Abdomen: Soft, non-tender, nondistended, normal bowel sounds. No guarding or rebound tenderness. No fluid wave appreciated Musculoskeletal: Normal range of motion and strength, no tenderness or swelling Extremities: Bilateral lower extremity bronzing. Skin: Skin is warm, dry, no rashes or lesions. Neurologic: Alert, awake and oriented to person, place at times. Not oriented to date, situation. CN II-XII grossly intact. No focal neuro deficits. No signs of meningeal irritation noted. +1 asterixis Psychiatric: Cooperative, appropriate mood and affect Objective Labs 06/05/25 04:45 06/05/25 04:45 Labs: Laboratory Results - last 24 hr 06/04/25 06/04/25 06/04/25 23:01 23:09 23:57 WBC 3.0 L RBC 4.76 Hgb 12.8 L Hct 38.7 L MCV 81 MCH 26.9 MCHC 33.1 RDW Std Deviation 48.0 H Plt Count 28 L* Neut % (Auto) 59 Lymph % (Auto) 25 Toole % (Auto) 13 H Eos % (Auto) 2 Baso % (Auto) 1 Neut # (Auto) 1.8 Lymph # (Auto) 0.8 L Toole # (Auto) 0.4 Eos # (Auto) 0.1 Baso # (Auto) 0.0 Immature Gran # (Auto) 0.01 H Absolute Nucleated RBC 0.00 Immature Gran % 0 Nucleated RBC % 0 ESR 4 PT 15.1 H INR 1.5 H APTT 30.6 D-Dimer 525 Puncture Site ABG pH ABG pCO2 ABG pO2 ABG HCO3 ABG O2 Saturation ABG Base Excess VBG pH 7.44 VBG pCO2 32 L VBG pO2 60 H VBG O2 Sat ([place]) 92 L VBG Base Excess -1 FiO2 Sodium 139 Potassium 3.4 Chloride 108 H Carbon Dioxide 20.5 Anion Gap 11 BUN 6 L Creatinine 0.7 Estim Creat Clear Calc 124.8 eGFR > 60 BUN/Creatinine Ratio 9 L Glucose 132 H Calculated Osmolality 277 Lactic Acid 2.1 H Calcium 8.4 Corrected Calcium 9.2 Magnesium 1.7 Total Bilirubin 2.0 H Direct Bilirubin 0.9 H AST 36 H ALT 29 Alkaline Phosphatase 128 H Ammonia 212 H* Total Creatine Kinase 43 Troponin I < 0.020 C-Reactive Prot, Quant < 0.5 B-Natriuretic Peptide < 20 Total Protein 5.9 Albumin 3.0 L Globulin 2.9 Albumin/Globulin Ratio 1.0 L Amylase 90 Lipase 38 Vitamin B12 1498 H Procalcitonin 0.10 TSH 1.48 Ur Collection Type Catheter Urine Color Yellow Urine Clarity Clear Urine pH 7.0 Ur Specific [place] 1.026 Urine Protein Negative Urine Glucose (UA) 4+ A Urine Ketones Negative Urine Blood Negative Urine Nitrite Negative Urine Bilirubin Negative Urine Urobilinogen (Auto) 4.0 Ur Leukocyte Esterase Negative Urine RBC 1 Urine WBC 2 Ur Squamous Epith Cells 8 H Urine Bacteria None Ur Culture Indicated? Not Indicated Salicylates < 3.0 Urine Opiates Screen Negative Urine Fentanyl Screen Negative Acetaminophen < 2.0 L Ur Barbiturates Screen Negative U Amphetamin/Meth Scrn Negative U Benzodiazepines Scrn Positive A U Cocaine Metab Screen Negative U Marijuana (THC) Screen Negative Ethyl Alcohol < 3.0 Influenza A (Rapid) Negative Influenza B (Rapid) Negative Misc Test Result Platelets confirmed 06/05/25 06/05/25 06/05/25 00:27 02:45 04:45 WBC 3.3 L RBC 5.00 Hgb 13.7 Hct 40.9 L MCV 82 MCH 27.4 MCHC 33.5 RDW Std Deviation 48.1 H Plt Count 27 L* Neut % (Auto) 70 Lymph % (Auto) 17 Toole % (Auto) 12 Eos % (Auto) 1 Baso % (Auto) 1 Neut # (Auto) 2.3 Lymph # (Auto) 0.6 L [place] # (Auto) 0.4 Eos # (Auto) 0.0 Baso # (Auto) 0.0 Immature Gran # (Auto) 0.00 Absolute Nucleated RBC 0.00 Immature Gran % 0 Nucleated RBC % 0 ESR PT INR APTT D-Dimer Puncture Site Right Radial ABG pH 7.48 H ABG pCO2 26 L ABG pO2 119 H ABG HCO3 19 L ABG O2 Saturation 99 H ABG Base Excess -3 VBG pH VBG pCO2 VBG pO2 VBG O2 Sat ([place]) VBG Base Excess FiO2 21 Sodium 142 Potassium 3.3 L Chloride 111 H Carbon Dioxide 18.1 L Anion Gap 13 BUN 5 L Creatinine 0.7 Estim Creat Clear Calc 124.8 eGFR > 60 BUN/Creatinine Ratio 7 L Glucose 133 H Calculated Osmolality 282 Lactic Acid 3.2 H 3.0 H Calcium 8.2 L Corrected Calcium 9.0 Magnesium 1.7 Total Bilirubin 2.4 H Direct Bilirubin AST 35 H ALT 29 Alkaline Phosphatase 110 Ammonia Total Creatine Kinase Troponin I C-Reactive Prot, Quant B-Natriuretic Peptide Total Protein 6.0 Albumin 3.0 L Globulin 3.0 Albumin/Globulin Ratio 1.0 L Amylase Lipase Vitamin B12 Procalcitonin TSH Ur Collection Type Urine Color Urine Clarity Urine pH Ur Specific [place] Urine Protein Urine Glucose (UA) Urine Ketones Urine Blood Urine Nitrite Urine Bilirubin Urine Urobilinogen (Auto) Ur Leukocyte Esterase Urine RBC Urine WBC Ur Squamous Epith Cells Urine Bacteria Ur Culture Indicated? Salicylates Urine Opiates Screen Urine Fentanyl Screen Acetaminophen Ur Barbiturates Screen U Amphetamin/Meth Scrn U Benzodiazepines Scrn U Cocaine Metab Screen U Marijuana (THC) Screen Ethyl Alcohol Influenza A (Rapid) Influenza B (Rapid) Misc Test Result 06/05/25 06/05/25 07:09 07:55 WBC RBC Hgb Hct MCV MCH MCHC RDW Std Deviation Plt Count Neut % (Auto) Lymph % (Auto) Toole % (Auto) Eos % (Auto) Baso % (Auto) Neut # (Auto) Lymph # (Auto) Toole # (Auto) Eos # (Auto) Baso # (Auto) Immature Gran # (Auto) Absolute Nucleated RBC Immature Gran % Nucleated RBC % ESR PT INR APTT D-Dimer Puncture Site ABG pH ABG pCO2 ABG pO2 ABG HCO3 ABG O2 Saturation ABG Base Excess VBG pH VBG pCO2 VBG pO2 VBG O2 Sat ([place]) VBG Base Excess FiO2 Sodium Potassium Chloride Carbon Dioxide Anion Gap BUN Creatinine Estim Creat Clear Calc eGFR BUN/Creatinine Ratio Glucose Calculated Osmolality Lactic Acid 2.2 H Calcium Corrected Calcium Magnesium Total Bilirubin Direct Bilirubin AST ALT Alkaline Phosphatase Ammonia Total Creatine Kinase Troponin I C-Reactive Prot, Quant B-Natriuretic Peptide Total Protein Albumin Globulin Albumin/Globulin Ratio Amylase Lipase Vitamin B12 Procalcitonin TSH Ur Collection Type Urine Color Urine Clarity Urine pH Ur Specific [place] Urine Protein Urine Glucose (UA) Urine Ketones Urine Blood Urine Nitrite Urine Bilirubin Urine Urobilinogen (Auto) Ur Leukocyte Esterase Urine RBC Urine WBC Ur Squamous Epith Cells Urine Bacteria Ur Culture Indicated? Salicylates Urine Opiates Screen Urine Fentanyl Screen Acetaminophen Ur Barbiturates Screen U Amphetamin/Meth Scrn U Benzodiazepines Scrn U Cocaine Metab Screen U Marijuana (THC) Screen Ethyl Alcohol Influenza A (Rapid) Negative Influenza B (Rapid) Negative Misc Test Result ABG Interpretation ABG results: 06/04/25 06/05/25 23:09 00:27 ABG pH 7.48 H ABG pCO2 26 L ABG pO2 119 H ABG HCO3 19 L ABG O2 Saturation 99 H ABG Base Excess -3 VBG pH 7.44 VBG pCO2 32 L VBG pO2 60 H VBG Base Excess -1 Quality Measures Quality Measures none Assessment & Plan Assessment Current Active Medications: Generic Name Dose Route Start Last Admin Trade Name Freq PRN Reason Stop Dose Admin Dextrose 25 ml 06/05/25 04:07 Dextrose 50%-Water Inj 50 Ml Syringe IV 07/05/25 04:06 Q15MIN PRN BG 50-70 responsive npo pt Dextrose 50 ml 06/05/25 04:07 Dextrose 50%-Water Inj 50 Ml Syringe IV 07/05/25 04:06 Q15MIN PRN BG <50 OR BG <70 & pt unresponsive Furosemide 20 mg 06/05/25 09:00 Furosemide Inj 10 Mg/Ml 4ml Vial IVP 07/05/25 08:59 QDAY SUZANNE Glucagon 1 mg 06/05/25 04:07 Glucagon Inj 1 Mg Vial IM Q15MIN PRN BG <70, and no IV access Potassium Chloride 10 meq in 100 mls @ 100 mls/hr 06/05/25 08:01 Kcl Ivpb IV 06/05/25 12:00 Q1H [facility] Insulin Human Lispro 0 unit 06/05/25 04:15 06/05/25 04:24 Insulin Lispro (Admelog) 1 Unit/0.01 Ml Unit SC 07/05/25 04:14 Not Given Q6H [facility] Protocol Lactulose 20 gm 06/05/25 07:45 Lactulose Syrup 20 Gm/30 Ml Udc PO 07/05/25 07:44 QID [facility] Protocol Rifaximin 550 mg 06/05/25 09:00 Rifaximin 550 Mg Tablet PO 06/12/25 08:59 BID SUZANNE Spironolactone 100 mg 06/05/25 09:00 Spironolactone 25 Mg Tablet PO 07/05/25 08:59 DAILY SUZANNE Plan Mr. 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 Admitted for hepatic encephalopathy. Patient failed swallow study in ED, passed follow up swallow study. 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 No BM recently. No s/sx bleeding. Ammonia 212, Tbili 2, direct bili 0.9, AST 36, ALT 29, alk phos 128. Synthetic liver dysfunction present - WBC 3, hgb 12.8, plt 28, PT 15.1, INR 1.5. Given Lasix 40 mg IV x1, lactulose 20 mg [place] x1, Ceftriaxone 1 g IV x1. Failed bedside swallow study in ED. Passed subsequent swallow eval. MELD-Na: 14 --> <2% 90 day mortality Child-Pérez: 9 --> class B Plan: - Speech eval: passed - Lactulose 20 mg TID PO - Hold if over 3 BMs/day - Lasix 20 mg IV daily - Spironolactone 100 mg PO QD - Rifaximin 550 mg PO BID - CTM for s/sx GI bleed, daily CBC - Transfuse pRBC if hgb <7 - Transfuse plt if plt <10 to prevent spontaneous hemorrhage - Aspiration precautions - Pending blood cx #Lactic Acidosis VSS. Given 1L NS in ED LA 2.1 --> 3.2-> 3.0--> 2.2 --> 2.4 --> 2.8 Plan: - 250 mL LR bolus - Trend lactic acid #Hypertension Plan: -Hydralazine 10mg IV PRN Q4H for SBP>180 DBP>110 #Type 2 diabetes mellitus Home med: Insulin (unknown regimen) Plan: - SSI with q6h BG checks #EtOH use disorder #Polysubstance use disorder Drinks 6 pack beer daily. UDS + benzo. No agitation on exam. [facility], most likely has already passed withdrawal timeline. CIWA not necessary at this time. 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 Mckeon and Dr. Shaggy Connolly MD PGY1
[2025-06-05] MEDS: LACTULOSE SYRUP 20 GM/30 ML UDC PO ×3 (09:56→21:29)
[2025-06-05] MEDS: FUROSEMIDE INJ 10 MG/ML 4ML VIAL 20 MG IVP (09:57)
[2025-06-05] MEDS: POTASSIUM CHL 10 mEq IVPB 10 MEQ/100 ML BAG 75 MEQ IV ×4 (09:57→14:20)
[2025-06-05] MEDS: SPIRONOLACTONE 25 MG TABLET 100 MG PO (09:59)
[2025-06-05 10:12] LABS: Reflex Lactate? Y
[2025-06-05 11:59] LABS: Slide Review Platelets confirmed
[2025-06-05 12:07] LABS: Lactate (Lactic Acid) 2.4 mMol/L (0.4-2.0)
[2025-06-05 15:04] LABS: Reflex Lactate? Y
[2025-06-05 15:40] LABS: Lactate (Lactic Acid) 2.8 mMol/L (0.4-2.0)
[2025-06-05] MEDS: INSULIN LISPRO (AdmeLOG) 1 UNIT/0.01 ML UNIT SC (17:31)
[2025-06-05 18:39] LABS: Reflex Lactate? Y
[2025-06-05 19:40] LABS: Lactate (Lactic Acid) 2.4 mMol/L (0.4-2.0)
[2025-06-05 22:36] LABS: Reflex Lactate? Y
[2025-06-05 23:07] LABS: Lactic Acid, 3 HR 1.4 mMol/L (0.4-2.0)
[2025-06-06] VITALS (7 sets, daily range): BP systolic 114–140; BP diastolic 59–81; PULSE 65–80; RESP 17–18; TEMP 36.3–36.9; O2SAT 98–100
[2025-06-06 05:27] LABS: Basophils # (Auto) 0.0 Thou/mm3 (0.0-0.2); Basophils % (Auto) 1 % (0-2.5); Eosinophils # (Auto) 0.1 Thou/mm3 (0.0-0.5); Eosinophils % (Auto) 2 % (0-10); Hematocrit 35.9 % (41.0-53.0); Hemoglobin 11.8 g/dL (13.5-16.0); Immature Granulocytes Auto 0.01 Thou/mm3 (0.00-0.00); Lymphocytes # (Auto) 0.6 Thou/mm3 (1.0-4.8); Lymphocytes % (Auto) 20 % (10-50); Mean Corpuscular HGB Conc 32.9 g/dl (31.0-37.0); Mean Corpuscular Hemoglobin 26.7 pg (25.0-35.0); Mean Corpuscular Volume 81 fL (80-100); Monocytes # (Auto) 0.4 Thou/mm3 (0.0-0.8); Monocytes % (Auto) 14 % (0-12); Neutrophils # (Auto) 1.8 Thou/mm3 (1.8-7.7); Neutrophils % (Auto) 62 % (37-80); Nucleated Red Blood Cell # 0.00 Thou/mm3 (0.00-0.00); Nucleated Red Blood Cell % 0 /100 WBC (0); RDW Standard Deviation 47.9 fL (35.1-43.9); Red Blood Count 4.42 Miln/mm3 (4.50-5.90); White Blood Count 2.9 Thou/mm3 (3.8-10.6)
[2025-06-06 05:31] LABS: Platelet Count 25 Thou/mm3 (140-440)
[2025-06-06 05:55] LABS: Alanine Aminotransferase 23 U/L (10-49); Albumin, Serum 2.7 gm/dL (3.5-5.0); Albumin/Globulin Ratio 1.0 (1.2-2.2); Alkaline Phosphatase 95 U/L (46-116); Anion Gap 10 (7-16); Aspartate Amino Transferase 25 U/L (0-34); BUN/Creatinine Ratio 10 Ratio (12-20); Bilirubin,Total 2.1 mg/dL (0.3-1.2); Blood Urea Nitrogen 7 mg/dL (9-23); Calcium 8.1 mg/dL (8.3-10.6); Calcium (Corrected) 9.1 mg/dL (8.5-10.1); Carbon Dioxide 21.3 mMol/L (20.0-31.0); Chloride 108 mMol/L (98-107); Creatinine (Component) 0.7 mg/dL (0.6-1.3); Estimated Creatinine Clearance 124.8 mL/min (>60); Globulin 2.6 gm/dL (2.3-3.5); Glucose 148 mg/dL (74-106); Magnesium 1.8 mg/dL (1.6-2.6); Osmolality,Calculated 278 (275-295); Phosphorous 3.7 mg/dL (2.4-5.1); Potassium 3.6 mMol/L (3.4-5.1); Sodium 139 mMol/L (136-145); Total Protein 5.3 gm/dL (5.7-8.2); eGFR > 60 See Note
[2025-06-06 05:57] LABS: Glucose Estimated Average 143 mg/dL (80-131); Hemoglobin A1C 6.6 % Hgb (4.8-6.0)
[2025-06-06] MEDS: LACTULOSE SYRUP 20 GM/30 ML UDC PO ×2 (06:25→18:28)
[2025-06-06 06:43] LABS: Slide Review Platelets confirmed
[2025-06-06] MEDS: INSULIN LISPRO (AdmeLOG) 1 UNIT/0.01 ML UNIT SC ×3 (08:04→17:32)
[2025-06-06] MEDS: FUROSEMIDE INJ 10 MG/ML 4ML VIAL 20 MG IVP (08:47)
[2025-06-06] MEDS: POTASSIUM CHL 10 mEq IVPB 10 MEQ/100 ML BAG 75 MEQ IV ×4 (08:47→14:04)
[2025-06-06] MEDS: SPIRONOLACTONE 25 MG TABLET 100 MG PO (08:48)
[2025-06-06 09:07] LABS: Ammonia 35 uMol/L (11-32)
--- NOTE | 2025-06-06 09:23 | PC.SS ---
Patient Stephen Prince is a 55 Year old male admitted for Hepatic Encephalopathy. SS me with patient at bedside to verify demographic information. Patient was brought in from [facility]. Patient reports his surrogate decision maker is his , Nida Prince [phone]. Patient is ambulatory and able to complete all ADL's independently. Officer at bedside informed SS patient will be returning back to [facility]. Discharge plan: [facility] Next of Kin: , Nida Prince
--- NOTE | 2025-06-06 10:22 | PC.SS ---
SS follow up note; Patient is pending Blood Cultures. Patient will return back to [facility] when medically cleared.
--- NOTE | 2025-06-06 13:31 | ESDS_ITS ---
<Statement entered by Claire Mckeon MD - 06/10/25 12:13> I reviewed above note and agree with findings and plans. I have also personally examined the patient with medicine team and went over assessment and plan with medical team including international first officer and resident physician. <Statement entered by Sage Coon MD - 06/06/25 18:21> I saw and examined patient personally and supervised PGY 1 resident, Dr. Connolly with formulating a management plan. I agree with the documentation with the exceptions as listed below. Mr. 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 Admitted for hepatic encephalopathy. Patient was treated with 1 day of lactulose and rifaximin after which his condition improved. Currently patient alert and oriented x 4 and all of his labs are returning to his baseline. Patient is clinically stable and fit for discharge to group home. Discharge instructions and recommendations as listed in the notes below. Discharge Diagnoses: 1. Altered mental status secondary to hepatic encephalopathy - resolved 2. Decompensated alcoholic cirrhosis with thrombocytopenia, coagulopathy and portal hypertension 3. Lactic acidosis B secondary to cirrhosis 4. Primary hypertension 5. Insulin-dependent diabetes mellitus type 2 6. History of alcohol dependence Plan of care discussed with Attending Dr. Mike Coon MD PGY 2 Disclaimer: This note was dictated by speech recognition. Minor errors in swing frame grinder operator may be present due to voice recognition software. Planned Discharge Date 06/06/25 DS: Providers Provider Date of admission: 06/05/25 03:31 Primary care physician: Elzbieta Quezada([facility])MD Admitting Provider: Navin Martin MD Attending Provider on Admission: Claire Mckeon MD Consults: 06/05/25 05:36 Referral Speech Therapy Urgent Comment: Attending Provider on DC: lCaire Mckeon MD Discharging Provider: Claire Mckeon MD DS: Diagnosis Problem List Completed Was Problem List Reviewed/Reconciled?: Yes Hospital Course Hospital Course Hospital course: Mr. 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 Admitted for hepatic encephalopathy. In the ED patient was hypertensive BP 130-150s / 70-80s. Labs were significant for pancytopenia, lactic acidosis, elevated PT INR and hyperbilirubinemia and ammonemia, UDS positive for benzos. Imaging workup revealed cholecystitis, cirrhosis, and lung wall thickening most likely chronic. Treatment included 1L NS, Zofran 4 mg IV x1, Lasix 40 mg IV x1, Lactulose 20 mg [place] x1 as patient failed swallow study, ceftriaxone 1g IV x1 for SBP ppx. MELD- Na: 14, Child-Pérez: 9. In the hospital he passed the swallow study and altered mental status and asterixis resolved with lactulose, rifaximin, and spiranolactone. His lactic acidosis resolved with IVF. With resolution of symptoms patient deemed safe to discharge back to group home. Discharge Instructions: -Continue all medication as prescribed -Continue Lactulose for acute hepatic encephlopathy, titrate down if need be if excessive bowel movements. -Stop antibiotics or follow up with your primary care provider. -Please follow up with your primary care provider within one week of discharge -If your symptoms worsen,please seek immediate medical attention and return to your nearest emergency room -If you do not have a primary care provider, [facility] [address], [place] [address], #Hepatic encephalopathy #Acutely decompensated End-stage liver disease 2/2 EtOH #Hx Portal hypertension #Pancytopenia 2/2 ESLD #Ascites #Lactic Acidosis #Hypertension #Type 2 diabetes mellitus #EtOH use disorder #Polysubstance use disorder Patient's plan and care discussed with my attending, Dr. Mckeon, and supervising resident MD Miki Underwood MD Internal Medicine PGY-1 Status at Discharge Functional status at discharge: independent ambulation Overall status at discharge: patient is back to baseline Time Spent with Patient Time attestation: Total time spent providing and/or coordinating discharge services: Time spent: Greater than 30 minutes Exam Vital Signs Temp Pulse Resp BP Pulse Ox O2 Del Method 97.7 F 65 18 124/72 98 Room Air 06/06/25 08:00 06/06/25 08:48 06/06/25 08:00 10/08/25 08:48 06/06/25 08:00 06/06/25 08:00 Narrative Exam General: No acute distress, no jaundice appreciated Eye: PERRL, EOMI, normal conjunctiva, no scleral icterus HENT: Normocephalic, atraumatic, normal hearing, moist oral mucosa Neck: Supple, non-tender, no JVD, no lymphadenopathy Lungs: Clear to auscultation bilaterally, non-labored respirations, symmetric chest rise, no use of accessory muscles Heart: Normal S1 and S2, no S3 or S4 appreciated. Normal rate and regular rhythm, no murmurs, rubs gallops, or edema. Peripheral pulses intact bilaterally, capillary refill brisk distally Abdomen: Soft, non-tender, nondistended, normal bowel sounds. No guarding or rebound tenderness. No fluid wave appreciated Musculoskeletal: Normal range of motion and strength, no tenderness or swelling Extremities: Bilateral lower extremity bronzing. Skin: Skin is warm, dry, no rashes or lesions. Neurologic: Alert, awake and oriented to person, place, date and time. CN II-XII grossly intact. No focal neuro deficits. No signs of meningeal irritation noted. +0 asterixis Psychiatric: Cooperative, appropriate mood and affect Discharge Plan Plan Patient Disposition: Intermediate/Court/Law Patient condition on transfer: Stable Care Plan Goals: Instructions: -Continue all medication as prescribed -Continue Lactulose for acute hepatic encephlopathy, titrate down if need be if excessive bowel movements. -Stop antibiotics or follow up with your primary care provider. -Please follow up with your primary care provider within one week of discharge -If your symptoms worsen,please seek immediate medical attention and return to your nearest emergency room -If you do not have a primary care provider, you may follow up at the [facility] at [address], [place] [address], Instrucciones: - Contin?e con todos los medicamentos seg?n lo prescrito. - Contin?e con lactulosa para la encefalopat?a hep?colette aguda; reduzca la dosis si es necesario si hay deposiciones excesivas. - Suspenda los antibi?ticos o consulte a garsia m?dico de cabecera. - Consulte a garsia m?dico de cabecera dentro de la semana posterior al emmanuel. - Si keren s?ntomas empeoran, busque atenci?n m?dica inmediata y acuda a la inga de urgencias m?s cercana. - Si no cuenta con un m?dico de cabecera, puede consultar a garsia m?dico de cabecera en el [facility], ub[address]ado en [address], [address], [place] [address], tel?fono . Prescriptions/Referrals Prescriptions/Med Rec: Continued cyclobenzaprine 10 mg Tablet 10 mg PO BID PRN (Reason: Muscle Pain) furosemide [Lasix] 40 mg Tablet 40 mg PO QDAY spironolactone 100 mg Tablet 100 mg PO QDAY tramadol 50 mg tablet 50 mg PO Q8H PRN (Reason: pain) Qty: 20 0RF folic acid 1 mg tablet 1 mg PO QDAY Qty: 30 0RF thiamine HCl (vitamin B1) 100 mg tablet 100 mg PO QDAY Qty: 30 0RF insulin glargine [Lantus U-100 Insulin] 100 unit/mL solution 40 unit subcut QDAY Qty: 10 0RF insulin lispro 100 unit/mL solution 10 unit subcut TIDWMEAL Qty: 10 0RF metformin 500 mg Tablet 1,000 mg PO BIDWMEAL Qty: 120 0RF lactulose 20 gram/30 mL solution 20 g PO TID Qty: 3000 0RF prednisone 50 mg tablet 50 mg PO QDAY Qty: 7 0RF pantoprazole [Protonix] 40 mg tablet,delayed release (DR/EC) 40 mg PO QDAY Qty: 10 0RF Discontinued cephalexin 500 mg tablet 500 mg PO QID Qty: 40 0RF [facility]: [facility] [Primary Care Provider] Patient/Caregiver Discharge Instructions Education Materials: Hepatic Encephalopathy, Treating Cirrhosis Print Language: Tongan Discharge Order Discharge Orders: Discharge (Routine); Ordered 06/06/25 Ordered By: Alena Atwood Quality Discharge Quality Measures VTE prophylaxis
== END 2025-06-06 18:40 | DRG 280 ==
LOC: SERX 06-05 03:34 → SERHOLD 06-05 03:52 → S3SX 06-05 08:10
PROVIDERS: Emergency Medicine; Admitting Provider Internal Medicine; PCP Internal Medicine; Visit Provider Internal Medicine
DX: K70.31 Alcoholic cirrhosis of liver with ascites (principal); D61.818 Other pancytopenia; K76.6 Portal hypertension; E87.20 Acidosis, unspecified; R16.1 Splenomegaly, not elsewhere classified; K76.82 Hepatic encephalopathy; E11.9 Type 2 diabetes mellitus without complications; F19.10 Other psychoactive substance abuse, uncomplicated; I10 Essential (primary) hypertension; K72.10 Chronic hepatic failure without coma; K80.10 Calculus of gallbladder with chronic cholecystitis without obstruction; D68.9 Coagulation defect, unspecified; Z79.4 Long term (current) use of insulin; Z79.899 Other long term (current) drug therapy
CPT/HCPCS: 36415; 36600; 70450; 71045; 71250; 74176; 80053; 80307; 80320; 80329; 81001; 82140; 82150; 82248; 82550; 82607; 82803; 83036; 83605; 83690; 83735; 83880; 84100; 84145; 84443; 84484; 85025; 85379; 85610; 85652; 85730; 86140; 87040; 87081; 87502; 87811; 92610; 93005; 96361; 96365; 96375; 96376; 99285; J0696; J1815; J1938; J2405; J3480; J7030; J7120; A9270; G0480

== ENCOUNTER 2025-08-01 05:09 | Inpatient (IN) | payer MEDICAID, SELFPAY ==
[2025-08-01] VITALS (8 sets, daily range): BP systolic 115–176; BP diastolic 67–94; PULSE 63–77; RESP 12–20; TEMP 36.1–37; O2SAT 98–100; BMI 27.2
[2025-08-01] MEDS: SODIUM CHLORIDE 0.9% 500 ML 500 ML 999 ML IV (05:59)
--- NOTE | 2025-08-01 06:17 | EDNOTE_ITS ---
Altered Mental Status RME/HPI General Chief Complaint: Altered Mental Status Stated Complaint: AMS Time Seen by Provider: 08/01/25 06:12 Arrival date/time: 08/01/25 05:09 RME / HPI RME / HPI narrative: 55 year old male with history of end stage liver disease, prior admission for hepatic encephalopathy, diabetes presents to the ED BIB [facility] for altered mental status today. [facility] staff there noted the patient appeared confused. Reportedly checked his blood sugar and noted to be high 500s. In the ED, patient is only responding in 1 word responses and does not provide any additional history. Related Data Home Medications ?Medication ?Instructions ?Recorded ?Confirmed spironolactone 100 mg tablet 100 mg PO QDAY 03/09/22 1 insulin regular human 100 unit/mL 1 sliding scale dose subcut 06/20/25 06/20/25 injection solution (Humulin R USEASDIRECTD Regular U-100 Insulin) Previous Rx's ?Medication ?Instructions ?Recorded folic acid 1 mg tablet 1 mg PO QDAY #30 tabs insulin glargine 100 unit/mL 40 unit (0.4 mL) subcut Q DAY #10 mL 02/08/24 subcutaneous solution (Lantus U-100 Insulin) thiamine HCl (vitamin B1) 100 mg 100 mg PO QDAY #30 ta bs 02/08/24 tablet pantoprazole 40 mg tablet,delayed 40 mg PO QDAY #10 ta bs 02/21/25 release (Protonix) lactulose 10 gram/15 mL oral 30 g (45 mL) PO TID #3,00 0 mL 06/21/25 solution rifaximin 550 mg tablet 550 mg PO BID #60 tabs 06/21 Allergies Allergy/AdvReac Type Severity Reaction Status Date / Time No Known Allergies Allergy Verified 08/01/25 05:11 Review of Systems Review of Systems ROS Unobtainable: unobtainable due to mental status Past Medical History Past Medical History NEUROLOGIC: Positive Neurological Disorders, Seizures and Epilepsy CARDIAC: Positive Cardiac Disorders and Hypertension GASTROINTESTINAL: Positive Gastrointestinal Disorders, Cirrhosis, Gall Bladder Disease, Hiatal Hernia, Gastroesophageal Reflux Disease and Obesity MUSCULOSKELETAL: Positive Fractures ENDOCRINE: Positive Endocrine Disorders and Diabetes Mellitus Type 2 HEMATOLOGIC: Positive Blood Disorders OTHER HISTORY: Positive Hospitalization and Blood Transfusions Family History FAMILY HISTORY: Negative Family Neurologic Problems or Family Anesthesia Reaction Social History SMOKING STATUS: Never smoker SECOND HAND EXPOSURE: Yes SUBSTANCE USE: does not use 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 Exam Narrative Physical exam: GENERAL APPEARANCE: Slow to respond to questions, not giving appropriate responses, well-developed, well-nourished HEENT: Normocephalic, atraumatic; pupils equal, round, reactive to light; EOMI; mucous membranes pink, moist; oropharynx clear NECK: Supple LUNGS: CTABL; no wheezes, no rales, no rhonchi HEART: Regular rate, regular rhythm; normal S1, S2; no murmurs ABDOMEN: non distended; normal BS; soft, no tenderness, no guarding, no rebound; no masses, no organomegaly, no hernia BACK: no CVA tenderness EXTREMITIES: atraumatic; no edema NEUROLOGIC: Slow to respond to questions, not giving appropriate responses, alert ; cranial nerves II-XII grossly intact SKIN: warm, dry, normal color; no rashes Course Quality Measures none Orders Category Date Time Status IV [Insert IV] STAT Care 08/01/25 05:51 Completed Miscellaneous Nursing Order X1 Care 08/01/25 05:51 Active Straight [In and Out Catheter] X1 Care 08/01/25 06:36 Completed Alcohol, Blood Medical Stat Lab 08/01/25 06:17 Completed Ammonia Stat Lab 08/01/25 06:25 Completed CBC Stat Lab 08/01/25 06:17 Results Comprehensive Metabolic Panel Stat Lab 08/01/25 06:17 Completed Drug Screen,Urine Stat Lab 08/01/25 06:21 Ordered Troponin I Stat Lab 08/01/25 06:17 Completed Urinalysis Stat Lab 08/01/25 06:35 Completed Sodium Chloride 0.9% 500 ml [Ns] 500 ml Med 08/01/25 05:53 Discontinued IV 999 mls/hr Vital Signs Vital signs: Vital Signs Temperature 98.6 F 08/01/25 05:14 Pulse Rate 65 08/01/25 05:14 Respiratory Rate 20 08/01/25 05:14 Blood Pressure 139/67 H 08/01/25 05:14 Pulse Oximetry (%) 100 08/01/25 05:14 Oxygen Delivery Method Room Air 08/01/25 05:14 Pulse ox is 100% on room air which is adequate. Altered Mental Status MDM Narrative MDM Narrative:: Zofia Burgos, am scribing for and in the presence of Dr. Appiah. 0725a: I spoke with hospitalist team for admission. Discussed patients PMHx, HPI, ED course, exam findings, labs, and radiology results. Patient data External records reviewed:: [facility] previous records and EMS form Clinical information provided by:: patient Social determinants that could affect healthcare access:: none Patient has the following chronic illnesses:: end stage liver disease, prior admission for hepatic encephalopathy, diabetes How is presenting disease/condition affected by chronic disease/condition?: exacerbated by Evaluation data The following diagnostics were reviewed and interpreted by me:: lab results Lab and/or radiology exams considered but not ordered:: None Interpretation Summary: Platelet count 30 Total bilirubin 1.7 Alkaline phos 179 Ammonia 202 UA is unremarkable Alcohol < 3 Medications / Prescriptions Medications or Prescriptions considered but not ordered:: None Medication administrations:: Medication Administration History Discontinued Medications Sodium Chloride (Ns) 500 mls @ 999 mls/hr IV .Q31M ONE Stop: 08/01/25 06:23 Last Infusion: 08/01/25 06:37 Dose: Infused Documented By: Admin: 08/01/25 05:59 Dose: 999 mls/hr Documented By: ADILSON See above Consultations Consultation(s) initiated? (list below): Yes Consultation #1 (Physician, Specialty, Details): See MDM Diagnosis Most likely diagnosis given after review of the tests above:: Hepatic encephalopathy Admission Indicated Admission indicated?: indicated Admission Request Was there a request for admission?: Yes Admission Attestation Admission request attestation: Discussed case with [] from Hospitalist service regarding admission. Discussed patients ED course, exam findings, labs, and radiology results. The Hospitalist [agrees,declines] to accept the patient for admission. Disposition Plan Disposition Plan: Admit Discharge Plan Plan Patient Disposition: Admit Acute Care w/in Hospital Prescriptions/Referrals Prescriptions/Med Rec: No Action spironolactone 100 mg Tablet 100 mg PO QDAY folic acid 1 mg tablet 1 mg PO QDAY Qty: 30 0RF thiamine HCl (vitamin B1) 100 mg tablet 100 mg PO QDAY Qty: 30 0RF insulin glargine [Lantus U-100 Insulin] 100 unit/mL solution 40 unit subcut QDAY Qty: 10 0RF Humulin R Regular U-100 Insuln 100 unit/mL solution 1 sliding scale dose subcut USEASDIRECTD rifaximin 550 mg tablet 550 mg PO BID Qty: 60 0RF lactulose 10 gram/15 mL solution 30 g PO TID Qty: 3000 0RF pantoprazole [Protonix] 40 mg tablet,delayed release (DR/EC) 40 mg PO QDAY Qty: 10 0RF Referrals: Pilar([facility]),MD Elzbieta [Primary Care Provider] - In 1 week Problem List Clinical Impression: Hepatic encephalopathy Patient/Caregiver Discharge Instructions Print Language: Guinean Stand Alone Forms: Tam[facility] Award Info., Patient Portal Info Letter
[2025-08-01 06:40] LABS: Collection Type, Urine Voided; RBC,Urine 0 /hpf (0-3); WBC,Urine 0 /hpf (0-5)
[2025-08-01 06:58] LABS: Basophils # (Auto) 0.0 Thou/mm3 (0.0-0.2); Basophils % (Auto) 1 % (0-2.5); Eosinophils # (Auto) 0.1 Thou/mm3 (0.0-0.5); Eosinophils % (Auto) 2 % (0-10); Hematocrit 35.7 % (41.0-53.0); Hemoglobin 11.8 g/dL (13.5-16.0); Immature Granulocytes Auto 0.01 Thou/mm3 (0.00-0.00); Lymphocytes # (Auto) 1.1 Thou/mm3 (1.0-4.8); Lymphocytes % (Auto) 33 % (10-50); Mean Corpuscular HGB Conc 33.1 g/dl (31.0-37.0); Mean Corpuscular Hemoglobin 26.2 pg (25.0-35.0); Mean Corpuscular Volume 79 fL (80-100); Monocytes # (Auto) 0.4 Thou/mm3 (0.0-0.8); Monocytes % (Auto) 11 % (0-12); Neutrophils # (Auto) 1.6 Thou/mm3 (1.8-7.7); Neutrophils % (Auto) 52 % (37-80); Nucleated Red Blood Cell # 0.00 Thou/mm3 (0.00-0.00); Nucleated Red Blood Cell % 0 /100 WBC (0); RDW Standard Deviation 41.9 fL (35.1-43.9); Red Blood Count 4.50 Miln/mm3 (4.50-5.90); White Blood Count 3.2 Thou/mm3 (3.8-10.6)
[2025-08-01 07:06] LABS: Alanine Aminotransferase 23 U/L (10-49); Albumin, Serum 3.3 gm/dL (3.5-5.0); Albumin/Globulin Ratio 1.2 (1.2-2.2); Alcohol, Blood Medical < 3.0 mg/dL (0-10.0); Alkaline Phosphatase 179 U/L (46-116); Anion Gap 10 (7-16); Aspartate Amino Transferase 27 U/L (0-34); BUN/Creatinine Ratio 11 Ratio (12-20); Bilirubin,Total 1.7 mg/dL (0.3-1.2); Blood Urea Nitrogen 10 mg/dL (9-23); Calcium 8.3 mg/dL (8.3-10.6); Calcium (Corrected) 8.9 mg/dL (8.5-10.1); Carbon Dioxide 21.9 mMol/L (20.0-31.0); Chloride 107 mMol/L (98-107); Creatinine (Component) 0.9 mg/dL (0.6-1.3); Estimated Creatinine Clearance 98.0 mL/min (>60); Globulin 2.8 gm/dL (2.3-3.5); Glucose 245 mg/dL (74-106); Osmolality,Calculated 284 (275-295); Potassium 3.8 mMol/L (3.4-5.1); Sodium 139 mMol/L (136-145); Total Protein 6.1 gm/dL (5.7-8.2); Troponin I < 0.020 ng/mL (0.0-0.045); eGFR > 60 See Note
[2025-08-01 07:07] LABS: Ammonia 202 uMol/L (11-32)
[2025-08-01 07:12] LABS: Bilirubin,Urine Negative (Negative); Blood,Urine Negative (Negative); Clarity,Urine Clear (Clear/Hazy); Color,Urine Yellow (Lt Yel-Yel); Glucose, Urine 4+ (Negative); Ketones,Urine Negative (Negative); Leukocyte Esterase,Urine Negative (Negative); Nitrite,Urine Negative (Negative); PH,Urine 7.5 (5.0-7.0); Protein,Urine Negative (Neg - Trace); Specific Gravity,Urine 1.018 (1.001-1.035); Squamous Epithelial Cell,Urine 1 /hpf (0-5); Urobilinogen,Urine 2.0 mg/dL (0.0-1.0)
[2025-08-01 07:16] LABS: Platelet Count 30 Thou/mm3 (140-440)
--- NOTE | 2025-08-01 08:00 | PC.NURSE ---
pt up walked to bathroom with officer and tolerated well.
--- NOTE | 2025-08-01 08:01 | ESHP_ITS ---
Documentation for date of: 08/01/25 HPI History of Present Illness Chief complaint: Hepatic encephalopathy History of present illness: History of present illness: Patient is a 55 yo M with PMH of alcohol use disorder, liver cirrhosis with recurrent hepatic encephalopathy, T2DM presenting to ED from senior care accompanied by law enforcement with chief complaint of altered mentation. Patient was seen to be altered today; not answering questions or responding to commands. ED course: In the ED, patient only answered questions with yes or no. Labs notable for alk phos 129, ammonia 202, tox screen negative. patient admitted for management of hepatic encephalopathy. PMH: T2DM, AUD, liver cirrhosis PSH: hand surgery Allergies: NKDA Social history: significant alcohol use history (6 pack a day with known cirrhosis), no smoking or other drug use Review of Systems Review of Systems Narrative Review of Systems: General: Unable to obtain due to mentation HEENT: Unable to obtain due to mentation Heart: Unable to obtain due to mentation Lungs: Unable to obtain due to mentation Abdomen: Unable to obtain due to mentation Genitourinary: Unable to obtain due to mentation Musculoskeletal: Unable to obtain due to mentation Neurology: Unable to obtain due to mentation ROS otherwise negative except what is mentioned above. Exam Vital Signs Temp Pulse Resp BP Pulse Ox O2 Del Method 98.1 F 69 12 154/83 H 99 Room Air 08/01/25 06:02 08/01/25 06:02 08/01/25 06:02 08/01/25 06:02 08/01/25 06:02 08/01/25 06:02 Narrative Exam General: A/O x 0, not responding to questions except for yes Eyes: PERRL, EOMI. Anicteric, vision grossly intact. Ears: No ear pain, no ear discharge, Hearing grossly intact. Nose: No nasal discharge. Mouth/Throat: Moist mucous membranes, no redness, no lesions. Neck: Neck supple, non-tender, no cervical lymphadenopathy. Lungs: Clear ALBER to auscultation and percussion, No accessory muscle use. Cardio: Normal S1/S2, regular rhythm, no murmurs, no JVD or carotid bruits. Abdomen: Soft, nontender, no palpable masses, peristalsis present, no guarding or rebound. Extremities: Symmetrical, scrotal swelling, no peripheral edema , non-tender, peripheral pulses presents. Skin: No rashes, no lesions, warm to touch. Neuro: not responding to questions except for yes Psych: not responding to questions except for yes Results: Labs 08/01/25 06:17 08/01/25 06:17 Labs: Short CBC 08/01/25 Range/Units 06:17 WBC 3.2 L (3.8-10.6) Thou/mm3 Hgb 11.8 L (13.5-16.0) g/dL Hct 35.7 L (41.0-53.0) % Plt Count 30 L D (140-440) Thou/mm3 BMP 08/01/25 08/01/25 08/01/25 06:17 06:17 06:17 Sodium 139 Cancelled Potassium 3.8 Cancelled Chloride 107 Carbon Dioxide BUN Creatinine Glucose Calcium 08/01/25 08/01/25 08/01/25 06:17 06:17 06:17 Sodium Potassium Chloride Cancelled Carbon Dioxide 21.9 Cancelled BUN 10 Cancelled Creatinine 0.9 Glucose Calcium 08/01/25 08/01/25 08/01/25 06:17 06:17 06:17 Sodium Potassium Chloride Carbon Dioxide BUN Creatinine Cancelled Glucose 245 H Cancelled Calcium 8.3 Cancelled Cardiac Enzymes 08/01/25 Range/Units 06:17 Troponin I < 0.020 (0.0-0.045) ng/mL Liver Function 08/01/25 08/01/25 08/01/25 Range/Units 06:17 06:17 06:17 Total Bilirubin 1.7 H Cancelled (0.3-1.2) mg/dL AST 27 Cancelled (0-34) U/L ALT 23 (10-49) U/L Alkaline Phosphatase (46-116) U/L Albumin (3.5-5.0) gm/dL 08/01/25 08/01/25 08/01/25 Range/Units 06:17 06:17 06:17 Total Bilirubin (0.3-1.2) mg/dL AST (0-34) U/L ALT Cancelled (10-49) U/L Alkaline Phosphatase 179 H Cancelled (46-116) U/L Albumin 3.3 L Cancelled (3.5-5.0) gm/dL Urine 08/01/25 Range/Units 06:35 Urine Color Yellow (Lt Yel-Yel) Urine Clarity Clear (Clear/Hazy) Urine pH 7.5 H (5.0-7.0) Ur Specific [place] 1.018 (1.001-1.035) Urine Protein Negative (Neg - Trace) Urine Glucose (UA) 4+ A (Negative) Quality Measures Quality Measures none Medications Home Medications and Allergies Home Medications ?Medication ?Instructions ?Recorded ?Confirmed ?Type spironolactone 100 mg tablet 100 mg PO QDAY 03/09/22 1 10/02/24 History insulin regular human 100 unit/mL 1 sliding scale dose subcut 06/20/25 08/01/25 History injection solution (Humulin R USEASDIRECTD Regular U-100 Insulin) Allergies Allergy/AdvReac Type Severity Reaction Status Date / Time No Known Allergies Allergy Verified 08/01/25 05:11 Visit Medications Lactulose (Lactulose Syrup 20 Gm/30 Ml Udc) 60 gm PO X1 ONE; Protocol Stop: 08/01/25 07:53 Discontinued Medications Sodium Chloride (Ns) 500 mls @ 999 mls/hr IV .Q31M ONE Stop: 08/01/25 06:23 Last Infusion: 08/01/25 06:37 Dose: Infused Assessment & Plan Plan Patient is a 55 yo M with PMH of AUD causing liver cirrhosis and T2DM presenting to the ED for altered mentation from senior care; he was admitted for workup of hepatic encephalopathy secondary to elevated ammonia. #Decompensated liver cirrhosis #Hepatic encephalopathy #Thrombocytopenia #Leukopenia #History of alcohol use disorder Patient was found to have altered mentation by hospital staff in senior care and therefore he was brought to the ER; on exam patient only responds yes to questions. Patient has known history of cirrhosis secondary to AUD. Ammonia level was 202, platelet count was 30 on admission. Platelet counts consistent with cirrhosis. Plan: Lactulose 30 qid Rifaximin 550 BID Spironolactone 100 daily Thiamine 100 daily As patient is not currently bleeding, we will hold off on giving platelets; reconsider if patient platelet levels maintain with evidence of bleeding. MELD score of 13 today, 6% mortality in 3 months #T2DM Patient takes insulin and metformin on home regimen; A1c was 7.1 on 06/20/2025. Glucose on admission is 245. Plan: Insulin degludec 10 with sliding scale Hypoglycemia protocol in place, q6 glucose checks #Scrotal swelling, Likely secondary to inguinal hernia versus hydrocele versus testicular torsion although less likely Patient has scrotal swelling. Not in any pain on admission. Plan: Scrotal ultrasound ordered Disposition: Med-Tele DVT prophylaxis: SCD GI prophylaxis: Diet: NPO Lines: PIV CODE STATUS: Full code This case was discussed with my senior resident Dr. Wynn and attending physician, Dr. Hernandez. Manuelito Mayer MD-PhD, PGY1 Senior Resident Attestation: The patient is a 55-year-old male with significant past medical history of alcoholic cirrhosis, recurrent decompensation with hepatic encephalopathy, type 2 diabetes mellitus, chronic thrombocytopenia presented to ED from senior care for decreased responsiveness and lethargy for about 1 days. His vitals were fairly stable the patient was found to have pneumonia 202, hemoglobin 11.8, WBC 3.2, platelet 30, blood sugar 245, total bilirubin 1.7, ALP 179, UTOX negative, scrotum ultrasound revealed no testicular torsion or testicular mass, but revealed right inguinal hernia containing bowel in the scrotum and moderate left hydrocele. The patient was started on thiamine 100 mg IV daily, spironolactone 100 Mg p.o. daily, rifaximin 550 mg p.o. twice daily, lactulose 30 g p.o. 4 times daily to maintain 2-3 times daily bowel movement, insulin degludec 10 units subcutaneous daily, folic acid 1 mg daily and admitted to telemetry unit. We will continue to monitor him closely. I discussed with and supervised the landscape maintenance internship physician involved in the care of this patient. I personally saw and examined the patient and discussed the assessment and plan with the entire medicine team, including my attending. I agree with the assessment and plan as documented above. Mynor Wynn MD PGY3 Internal Medicine Attending Provider Attestation/Addendum Likely secondary to I or my resident physicians have discussed care with the ED physician and I have made the decision to admit. I have discussed and was present for the essential components of the history, physical examination, diagnosis, and treatment plan with the resident. I agree with the patient's care as documented by the resident and amended herein by me. Hari Hernandez DO. Although this document has been carefully reviewed, there may still be some phonetic and other typographical errors. These errors are purely grammatical due to imperfections in the software program and should not be construed in any way to compromise the substance of the patient's medical care during this visit.
[2025-08-01] MEDS: LACTULOSE SYRUP 20 GM/30 ML UDC 60 GM PO (08:45)
[2025-08-01 08:51] LABS: Amphetamine/Methamp Scrn,U Negative (Negative); Barbiturate Screen,Urine Negative (Negative); Benzodiazepines Screen,Urine Negative (Negative); Benzoylecgonine Screen, Ur Negative (Negative); Fentanyl Screen,Urine Negative (Negative); Opiate Screen,Urine Negative (Negative); THC Screen,Urine Negative (Negative)
--- NOTE | 2025-08-01 09:31 | PC.NURSE ---
report given to montana esparza. nurse will resume pt care. rm [id number]
[2025-08-01 10:06] LABS: Slide Review Platelets confirmed
--- NOTE | 2025-08-01 13:58 | XR_ITS ---
EXAMINATION: Testicular sonography complete TECHNIQUE: Grayscale sonographic images testes, assessment arterial inflow and venous outflow Doppler spectral analysis color flow analysis Date and time: August 01, 2025, 1423 hours, comparison October 18, 2020 INDICATIONS: Bilateral testicular swelling months FINDINGS: Right testis 3.2 cm epididymis 14 mm Arterial flow the testicle. No testicular mass Right inguinal hernia containing bowel in the scrotum Left testis 3.2 cm epididymis 12 mm Arterial flow the testicle. No testicular mass Moderate hydrocele IMPRESSION: No testicular torsion or testicular mass Right inguinal hernia containing bowel in the scrotum Moderate left hydrocele
[2025-08-01] MEDS: LACTULOSE SYRUP 20 GM/30 ML UDC 30 GM PO ×3 (14:17→20:18)
[2025-08-01] MEDS: THIAMINE INJ 100 MG/ML VIAL 2 ML IVP (14:18)
[2025-08-01] MEDS: SPIRONOLACTONE 25 MG TABLET 100 MG PO (14:18)
--- NOTE | 2025-08-01 18:45 | PC.NURSE ---
Dr. De Guzman aware of scrotum US. No BM this shift. Scrotum enlarged. Patient denies pain at this time.
[2025-08-01] MEDS: ACETAMINOPHEN 325 MG TABLET PO (23:50)
[2025-08-02] VITALS (10 sets, daily range): BP systolic 133–149; BP diastolic 60–84; PULSE 61–75; RESP 17–99; TEMP 36.2–36.4; O2SAT 94–199; BMI 27.2
[2025-08-02] MEDS: LACTULOSE SYRUP 20 GM/30 ML UDC 30 GM PO ×4 (05:32→20:57)
[2025-08-02 06:01] LABS: Basophils # (Auto) 0.0 Thou/mm3 (0.0-0.2); Basophils % (Auto) 1 % (0-2.5); Eosinophils # (Auto) 0.0 Thou/mm3 (0.0-0.5); Eosinophils % (Auto) 1 % (0-10); Hematocrit 36.5 % (41.0-53.0); Hemoglobin 12.1 g/dL (13.5-16.0); Immature Granulocytes Auto 0.01 Thou/mm3 (0.00-0.00); Lymphocytes # (Auto) 0.7 Thou/mm3 (1.0-4.8); Lymphocytes % (Auto) 27 % (10-50); Mean Corpuscular HGB Conc 33.2 g/dl (31.0-37.0); Mean Corpuscular Hemoglobin 26.5 pg (25.0-35.0); Mean Corpuscular Volume 80 fL (80-100); Monocytes # (Auto) 0.3 Thou/mm3 (0.0-0.8); Monocytes % (Auto) 13 % (0-12); Neutrophils # (Auto) 1.4 Thou/mm3 (1.8-7.7); Neutrophils % (Auto) 58 % (37-80); Nucleated Red Blood Cell # 0.00 Thou/mm3 (0.00-0.00); Nucleated Red Blood Cell % 0 /100 WBC (0); RDW Standard Deviation 42.8 fL (35.1-43.9); Red Blood Count 4.56 Miln/mm3 (4.50-5.90); White Blood Count 2.5 Thou/mm3 (3.8-10.6)
[2025-08-02 06:03] LABS: INR 1.6 (0.9-1.3); Prothrombin Time 16.4 Seconds (9.0-12.2)
[2025-08-02 06:29] LABS: Alanine Aminotransferase 24 U/L (10-49); Albumin, Serum 3.2 gm/dL (3.5-5.0); Albumin/Globulin Ratio 1.1 (1.2-2.2); Alkaline Phosphatase 133 U/L (46-116); Anion Gap 12 (7-16); Aspartate Amino Transferase 23 U/L (0-34); BUN/Creatinine Ratio 10 Ratio (12-20); Bilirubin,Total 3.1 mg/dL (0.3-1.2); Blood Urea Nitrogen 8 mg/dL (9-23); Calcium 8.4 mg/dL (8.3-10.6); Calcium (Corrected) 9.0 mg/dL (8.5-10.1); Carbon Dioxide 20.1 mMol/L (20.0-31.0); Chloride 110 mMol/L (98-107); Creatinine (Component) 0.8 mg/dL (0.6-1.3); Estimated Creatinine Clearance 110.3 mL/min (>60); Globulin 2.8 gm/dL (2.3-3.5); Glucose 289 mg/dL (74-106); Magnesium 1.4 mg/dL (1.6-2.6); Osmolality,Calculated 292 (275-295); Phosphorous 3.4 mg/dL (2.4-5.1); Potassium 3.9 mMol/L (3.4-5.1); Sodium 142 mMol/L (136-145); Total Protein 6.0 gm/dL (5.7-8.2); eGFR > 60 See Note
[2025-08-02 07:54] LABS: Platelet Count 22 Thou/mm3 (140-440)
[2025-08-02] MEDS: INSULIN DEGLUDEC 5 UNIT/0.05 ML (PER 5 UNITS) 10 UNIT SC ×2 (08:22→09:23)
[2025-08-02] MEDS: THIAMINE INJ 100 MG/ML VIAL 2 ML IVP (08:24)
[2025-08-02] MEDS: SPIRONOLACTONE 25 MG TABLET 100 MG PO (08:24)
[2025-08-02] MEDS: FOLIC ACID INJ 1 MG/0.2 ML IVP (08:25)
[2025-08-02] MEDS: Magnesium Sulfate 4 GM Ivpb 4 GM/50 ML BAG IV (09:11)
[2025-08-02 09:17] LABS: Slide Review Platelets confirmed
[2025-08-02] MEDS: INSULIN LISPRO (AdmeLOG) 1 UNIT/0.01 ML UNIT SC ×4 (09:22→21:09)
[2025-08-02] MEDS: ACETAMINOPHEN 325 MG TABLET PO ×2 (11:19→20:56)
[2025-08-02] MEDS: INSULIN DEGLUDEC 5 UNIT/0.05 ML (PER 5 UNITS) 20 UNIT SC (11:19)
--- NOTE | 2025-08-02 13:32 | PC.SS ---
SS met with patient and officer, Orlin regarding patient's d/c plan. Pt is alert/oriented. Pt was admitted for Heptic Encephalopathy. Pt is from [facility] and he will return upon dc. Pt ambulates independently without assistance or DME. Pt is ok with all ADLs. Per officer, Orlin for an emergency sergeant from [facility] is to be contacted and they will contact family. Officers will provide transportation upon dc. D/C plan: Return to [facility] Emergency contact: [facility], phone # [phone] or [phone] PCP: Dr. Watts Address: Correct on facesheet
--- NOTE | 2025-08-02 13:43 | PD.RESPRO ---
Documentation for date of: 08/02/25 Subjective Subjective Interval history: No acute overnight events. Patient examined at bedside. Patient complains of temporal headache as well as some pain in his scrotum that is intermittent. Is alert and oriented x 3 today. Inguinal hernia attempted to be reduced however unable to. VSS, magnesium 1.4 repleted with 4 g. Leukocyte stable low 2.5, hemoglobin stable 12.1, platelets stable below 22. PT/INR both elevated, MELD score 16 today. Score ultrasound shows moderate left hydrocele and right inguinal hernia in scrotum. Will continue hepatic encephalopathy treatment such as lactulose rifaximin and spironolactone. Increase degludec back to home dose of 40 units as patient's glucose elevated at 289. Anticipate discharge within the next 1-2 days. Exam Vital Signs Temp Pulse Resp BP Pulse Ox O2 Del Method 97.4 F 68 18 136/75 H 100 Room Air 08/02/25 12:00 08/02/25 12:00 08/02/25 12:00 08/02/25 12:00 08/02/25 12:00 08/02/25 12:00 Narrative Exam GENERAL: AOx3, no acute distress, lying down comfortably in bed HEENT: mucous membranes moist, bilateral sclera anicteric CARDIOVASCULAR: regular rate and rhythm, S1/S2 present, no murmurs appreciated PULMONARY: clear to auscultation bilaterally, no rales/rhonchi/wheezes ABDOMINAL: soft, non-tender, non-distended, no rebound/guarding, bowel sounds present, scrotal swelling EXTREMITIES: no peripheral edema SKIN: warm and dry, intact, no rashes NEURO: CN II-XII grossly intact, no focal deficits, alert, following commands Objective Labs 08/03/25 04:20 08/03/25 04:20 Labs: Laboratory Results - last 24 hr 08/02/25 05:12 WBC 2.5 L RBC 4.56 Hgb 12.1 L Hct 36.5 L MCV 80 MCH 26.5 MCHC 33.2 RDW Std Deviation 42.8 Plt Count 22 L* D Neut % (Auto) 58 Lymph % (Auto) 27 [place] % (Auto) 13 H Eos % (Auto) 1 Baso % (Auto) 1 Neut # (Auto) 1.4 L Lymph # (Auto) 0.7 L [place] # (Auto) 0.3 Eos # (Auto) 0.0 Baso # (Auto) 0.0 Immature Gran # (Auto) 0.01 H Absolute Nucleated RBC 0.00 Immature Gran % 0 Nucleated RBC % 0 PT 16.4 H INR 1.6 H Sodium 142 Potassium 3.9 Chloride 110 H Carbon Dioxide 20.1 Anion Gap 12 BUN 8 L Creatinine 0.8 Estim Creat Clear Calc 110.3 eGFR > 60 BUN/Creatinine Ratio 10 L Glucose 289 H Calculated Osmolality 292 Calcium 8.4 Corrected Calcium 9.0 Phosphorus 3.4 Magnesium 1.4 L Total Bilirubin 3.1 H D AST 23 ALT 24 Alkaline Phosphatase 133 H D Total Protein 6.0 Albumin 3.2 L Globulin 2.8 Albumin/Globulin Ratio 1.1 L Misc Test Result Platelets confirmed Quality Measures Quality Measures none Assessment & Plan Assessment Current Active Medications: Generic Name Dose Route Start Last Admin Trade Name Freq PRN Reason Stop Dose Admin Acetaminophen 325 mg 08/01/25 08:05 08/02/25 11:19 Acetaminophen 325 Mg Tablet PO 08/31/25 08:04 325 mg Q6H PRN Administration Fever >100.4 or Pain 1-3 Dextrose 25 ml 08/02/25 08:43 Dextrose 50%-Water Inj 50 Ml Syringe IV 09/01/25 08:42 Q15MIN PRN BG 50-70 responsive npo pt Dextrose 50 ml 08/02/25 08:43 Dextrose 50%-Water Inj 50 Ml Syringe IV 09/01/25 08:42 Q15MIN PRN BG <50 OR BG <70 & pt unresponsive Folic Acid 1 mg 08/03/25 09:00 Folic Acid 1 Mg Tablet PO 09/02/25 08:59 QDAY [facility] Protocol Glucagon 1 mg 08/02/25 08:43 Glucagon Inj 1 Mg Vial IM Q15MIN PRN BG <70, and no IV access Insulin Degludec 40 unit 08/03/25 09:00 Insulin Degludec 5 Unit/0.05 Ml (Per 5 Units) SC 09/02/25 08:59 QDAY [facility] Insulin Human Lispro 0 unit 08/02/25 11:30 08/02/25 11:18 Insulin Lispro (Admelog) 1 Unit/0.01 Ml Unit SC 09/01/25 11:29 6 unit ACHS [facility] Administration Protocol Lactulose 30 gm 08/01/25 14:00 08/02/25 11:19 Lactulose Syrup 20 Gm/30 Ml Udc PO 08/31/25 13:59 30 gm QID [facility] Administration Protocol Rifaximin 550 mg 08/01/25 14:00 08/02/25 08:23 Rifaximin 550 Mg Tablet PO 08/08/25 13:59 550 mg BID SUZANNE Administration Spironolactone 100 mg 08/01/25 14:00 08/02/25 08:24 Spironolactone 25 Mg Tablet PO 08/31/25 13:59 100 mg QDAY [facility] Administration Thiamine HCl 100 mg 08/01/25 14:00 08/02/25 08:24 Thiamine Inj 100 Mg/Ml Vial 2 Ml IVP 08/31/25 13:59 100 mg QDAY [facility] Administration Plan Patient is a 55 yo M with PMH of AUD causing liver cirrhosis and T2DM presenting to the ED for altered mentation from [facility]; he was admitted for workup of hepatic encephalopathy secondary to elevated ammonia. #Decompensated liver cirrhosis #Hepatic encephalopathy, resolved #Thrombocytopenia #Leukopenia #History of alcohol use disorder Patient was found to have altered mentation by hospital staff in [facility] and therefore he was brought to the ER; on exam patient only responds yes to questions. Patient has known history of cirrhosis secondary to AUD. Ammonia level was 202, platelet count was 30 on admission. Platelet counts consistent with cirrhosis. MELD score of 16 today, 6% mortality in 3 months Plan: - Lactulose 30 qid, Rifaximin 550 mg BID, spironolactone 100 daily - Thiamine 100 daily and folic acid 1 g QD - As patient is not currently bleeding, we will hold off on giving platelets; reconsider if patient platelet levels maintain with evidence of bleeding. - Educated patient how to titrate lactulose with goal of 2-3 BM a day #IDDM2 Patient takes insulin and metformin on home regimen; A1c was 7.1 on 06/20/2025. Glucose on admission is 245. Plan: - Insulin degludec 40 with sliding scale - Hypoglycemia protocol in place, q6 glucose checks #R indirect inguinal hernia #Scrotal swelling Patient has scrotal swelling. Not in any pain on admission. Scrotal US showed moderate L hydrocele and R inguinal hernia in scrotum. Plan: - Recommend outpatient management and follow up Disposition: Med-Tele DVT prophylaxis: SCD GI prophylaxis: Diet: NPO Lines: PIV CODE STATUS: Full code This case was discussed with my senior resident Dr. Wynn and attending physician, Dr. Hernandez. Irene Handy DO Internal Medicine PGY-1 Senior Resident Attestation: The patient was alert and oriented x 3 this morning. He reported doing much better. He had 2 bowel movement overnight. He was reinforced on having 2-3 bowel movement daily, and might need to increase the frequency of lactulose if his bowel movement is not greater than 2 or more. His blood sugar has been in 200s to 300s, and he is home insulin glargine 40 units daily was started back, and he is also on sliding scale insulin. Anticipating discharge by tomorrow if his blood sugar improves. I discussed with and supervised the international sales representative physician involved in the care of this patient. I personally saw and examined the patient and discussed the assessment and plan with the entire medicine team, including my attending. I agree with the assessment and plan as documented above. Mynor Wynn MD PGY3 Internal Medicine Attending Provider Attestation/Addendum I have discussed and was present for the essential components of the history, physical examination, diagnosis, and treatment plan with the resident. I agree with the patient's care as documented by the resident and amended herein by me. Hari Hernandez DO. Although this document has been carefully reviewed, there may still be some phonetic and other typographical errors. These errors are purely grammatical due to imperfections in the software program and should not be construed in any way to compromise the substance of the patient's medical care during this visit. Patient seen and evaluated this AM. No acute events overnight, vital signs stable, patient afebrile, 2 bowel movements recorded, blood glucose elevated this morning in the 270s. Significant labs include pancytopenia to include thrombocytopenia, INR elevated to 1.6, T. bili 3.1. Normal sodium and potassium, chloride 110, total bilirubin 3.1, magnesium low at 1.4. Patient's mental status much improved today, will continue rifaximin, spironolactone and lactulose for now. Likely DC tomorrow pending further clinical improvement.
[2025-08-02] MEDS: INSULIN LISPRO (AdmeLOG) 1 UNIT/0.01 ML UNIT 3 UNIT SC (17:20)
[2025-08-03] VITALS (15 sets, daily range): BP systolic 106–152; BP diastolic 61–80; PULSE 63–92; RESP 16–99; TEMP 35.5–36.4; O2SAT 96–100; BMI 27.2; BMI 27.1
[2025-08-03] MEDS: LACTULOSE SYRUP 20 GM/30 ML UDC 30 GM PO ×3 (05:35→21:33)
[2025-08-03] MEDS: ACETAMINOPHEN 325 MG TABLET PO ×2 (05:41→22:40)
[2025-08-03 06:00] LABS: Basophils # (Auto) 0.0 Thou/mm3 (0.0-0.2); Basophils % (Auto) 1 % (0-2.5); Eosinophils # (Auto) 0.1 Thou/mm3 (0.0-0.5); Eosinophils % (Auto) 2 % (0-10); Hematocrit 36.8 % (41.0-53.0); Hemoglobin 12.5 g/dL (13.5-16.0); Immature Granulocytes Auto 0.01 Thou/mm3 (0.00-0.00); Lymphocytes # (Auto) 0.8 Thou/mm3 (1.0-4.8); Lymphocytes % (Auto) 25 % (10-50); Mean Corpuscular HGB Conc 34.0 g/dl (31.0-37.0); Mean Corpuscular Hemoglobin 26.7 pg (25.0-35.0); Mean Corpuscular Volume 79 fL (80-100); Monocytes # (Auto) 0.4 Thou/mm3 (0.0-0.8); Monocytes % (Auto) 12 % (0-12); Neutrophils # (Auto) 1.9 Thou/mm3 (1.8-7.7); Neutrophils % (Auto) 60 % (37-80); Nucleated Red Blood Cell # 0.00 Thou/mm3 (0.00-0.00); Nucleated Red Blood Cell % 0 /100 WBC (0); RDW Standard Deviation 41.1 fL (35.1-43.9); Red Blood Count 4.69 Miln/mm3 (4.50-5.90); White Blood Count 3.1 Thou/mm3 (3.8-10.6)
[2025-08-03 06:14] LABS: Platelet Count 13 Thou/mm3 (140-440)
[2025-08-03 06:39] LABS: Alanine Aminotransferase 23 U/L (10-49); Albumin, Serum 3.2 gm/dL (3.5-5.0); Albumin/Globulin Ratio 1.1 (1.2-2.2); Alkaline Phosphatase 153 U/L (46-116); Anion Gap 13 (7-16); Aspartate Amino Transferase 45 U/L (0-34); BUN/Creatinine Ratio 14 Ratio (12-20); Bilirubin,Total 1.7 mg/dL (0.3-1.2); Blood Urea Nitrogen 13 mg/dL (9-23); Calcium 8.4 mg/dL (8.3-10.6); Calcium (Corrected) 9.0 mg/dL (8.5-10.1); Carbon Dioxide 15.9 mMol/L (20.0-31.0); Chloride 107 mMol/L (98-107); Creatinine (Component) 0.9 mg/dL (0.6-1.3); Estimated Creatinine Clearance 98.0 mL/min (>60); Globulin 2.9 gm/dL (2.3-3.5); Glucose 306 mg/dL (74-106); Magnesium 1.6 mg/dL (1.6-2.6); Osmolality,Calculated 284 (275-295); Phosphorous 3.8 mg/dL (2.4-5.1); Potassium 4.9 mMol/L (3.4-5.1); Sodium 136 mMol/L (136-145); Total Protein 6.1 gm/dL (5.7-8.2); eGFR > 60 See Note
[2025-08-03] MEDS: INSULIN LISPRO (AdmeLOG) 1 UNIT/0.01 ML UNIT SC ×4 (07:43→21:51)
[2025-08-03] MEDS: INSULIN LISPRO (AdmeLOG) 1 UNIT/0.01 ML UNIT 3 UNIT SC ×2 (07:43→12:04)
[2025-08-03] MEDS: INSULIN DEGLUDEC 5 UNIT/0.05 ML (PER 5 UNITS) 40 UNIT SC (08:21)
[2025-08-03] MEDS: THIAMINE INJ 100 MG/ML VIAL 2 ML IVP (08:21)
[2025-08-03] MEDS: SPIRONOLACTONE 25 MG TABLET 100 MG PO (08:22)
[2025-08-03] MEDS: FOLIC ACID 1 MG TABLET PO (08:23)
[2025-08-03 08:49] LABS: Slide Review Platelets confirmed
[2025-08-03 09:17] LABS: Base Excess, Venous -3 (-3-3); O2 Saturation, Venous 72 % (96-97); PCO2, Venous 32 mmHg (36-56); PO2, Venous 39 mmHg (15-58); pH, Venous 7.42 (7.33-7.66)
[2025-08-03 09:23] LABS: Beta Hydroxybutyrate 0.1 mmol/L (<0.6)
[2025-08-03 12:33] LABS: Basophils # (Auto) 0.0 Thou/mm3 (0.0-0.2); Basophils % (Auto) 1 % (0-2.5); Eosinophils # (Auto) 0.0 Thou/mm3 (0.0-0.5); Eosinophils % (Auto) 1 % (0-10); Hematocrit 37.2 % (41.0-53.0); Hemoglobin 12.5 g/dL (13.5-16.0); Immature Granulocytes Auto 0.00 Thou/mm3 (0.00-0.00); Lymphocytes # (Auto) 0.8 Thou/mm3 (1.0-4.8); Lymphocytes % (Auto) 24 % (10-50); Mean Corpuscular HGB Conc 33.6 g/dl (31.0-37.0); Mean Corpuscular Hemoglobin 26.5 pg (25.0-35.0); Mean Corpuscular Volume 79 fL (80-100); Monocytes # (Auto) 0.4 Thou/mm3 (0.0-0.8); Monocytes % (Auto) 11 % (0-12); Neutrophils # (Auto) 2.0 Thou/mm3 (1.8-7.7); Neutrophils % (Auto) 63 % (37-80); Nucleated Red Blood Cell # 0.00 Thou/mm3 (0.00-0.00); Nucleated Red Blood Cell % 0 /100 WBC (0); RDW Standard Deviation 40.9 fL (35.1-43.9); Red Blood Count 4.72 Miln/mm3 (4.50-5.90); White Blood Count 3.2 Thou/mm3 (3.8-10.6)
[2025-08-03 12:34] LABS: Platelet Count 25 Thou/mm3 (140-440)
[2025-08-03 12:35] LABS: Slide Review Platelets confirmed
[2025-08-03 12:55] LABS: Alanine Aminotransferase 25 U/L (10-49); Albumin, Serum 3.2 gm/dL (3.5-5.0); Albumin/Globulin Ratio 1.1 (1.2-2.2); Alkaline Phosphatase 167 U/L (46-116); Anion Gap 11 (7-16); Aspartate Amino Transferase 21 U/L (0-34); BUN/Creatinine Ratio 11 Ratio (12-20); Bilirubin,Total 1.9 mg/dL (0.3-1.2); Blood Urea Nitrogen 10 mg/dL (9-23); Calcium 8.7 mg/dL (8.3-10.6); Calcium (Corrected) 9.3 mg/dL (8.5-10.1); Carbon Dioxide 19.5 mMol/L (20.0-31.0); Chloride 104 mMol/L (98-107); Creatinine (Component) 0.9 mg/dL (0.6-1.3); Estimated Creatinine Clearance 98.0 mL/min (>60); Globulin 3.0 gm/dL (2.3-3.5); Osmolality,Calculated 285 (275-295); Potassium 4.0 mMol/L (3.4-5.1); Sodium 134 mMol/L (136-145); Total Protein 6.2 gm/dL (5.7-8.2); eGFR > 60 See Note
[2025-08-03 12:59] LABS: Glucose 426 mg/dL (74-106)
[2025-08-03] MEDS: INSULIN LISPRO (AdmeLOG) 1 UNIT/0.01 ML UNIT 7 UNIT SC (14:10)
--- NOTE | 2025-08-03 14:42 | ESPR_ITS ---
Documentation for date of: 08/03/25 Subjective Subjective Interval history: No acute overnight events. Patient seen and examined at bedside. Patient complains of scrotal pain and mild dizziness which resolved in the afternoon.. A.m., platelets 13 and bicarb noted to be 15 from 20 with glucose of 306. Given metabolic alkalosis VBG and beta hydroxybutyrate ordered both negative. Metabolic alkalosis likely 2/2 GI losses given BM on lactulose. Afternoon CBC and CMP platelets 22 and bicarb now 19. Plan to transfuse 1 unit platelets today. Blood glucose trending 300s to 400s, increased insulin lispro to 10 units 3 times daily with meals, continue insulin degludec 40 units daily with SSI step 3. Exam Vital Signs Temp Pulse Resp BP Pulse Ox O2 Del Method 97.1 F 63 18 152/74 H 100 Room Air 08/03/25 11:33 08/03/25 11:33 08/03/25 11:33 08/03/25 11:33 08/03/25 11:33 08/03/25 04:00 Narrative Exam GENERAL: AOx3, no acute distress, sitting up comfortably in bed HEENT: mucous membranes moist, bilateral sclera anicteric CARDIOVASCULAR: regular rate and rhythm, S1/S2 present, no murmurs appreciated PULMONARY: clear to auscultation bilaterally, no rales/rhonchi/wheezes ABDOMINAL: soft, non-tender, non-distended, no rebound/guarding, bowel sounds present, scrotal swelling EXTREMITIES: no peripheral edema SKIN: warm and dry, intact, no rashes NEURO: CN II-XII grossly intact, no focal deficits, alert, following commands Objective Labs 08/03/25 12:20 08/03/25 12:20 Labs: Laboratory Results - last 24 hr 08/03/25 08/03/25 08/03/25 04:20 09:01 12:20 WBC 3.1 L 3.2 L RBC 4.69 4.72 Hgb 12.5 L 12.5 L Hct 36.8 L 37.2 L MCV 79 L 79 L MCH 26.7 26.5 MCHC 34.0 33.6 RDW Std Deviation 41.1 40.9 Plt Count 13 L* D 25 L* D Neut % (Auto) 60 63 Lymph % (Auto) 25 24 [place] % (Auto) 12 11 Eos % (Auto) 2 1 Baso % (Auto) 1 1 Neut # (Auto) 1.9 2.0 Lymph # (Auto) 0.8 L 0.8 L [place] # (Auto) 0.4 0.4 Eos # (Auto) 0.1 0.0 Baso # (Auto) 0.0 0.0 Immature Gran # (Auto) 0.01 H 0.00 Absolute Nucleated RBC 0.00 0.00 Immature Gran % 0 0 Nucleated RBC % 0 0 VBG pH 7.42 VBG pCO2 32 L VBG pO2 39 VBG O2 Sat ([place]) 72 L VBG Base Excess -3 Sodium 136 134 L Potassium 4.9 D 4.0 D Chloride 107 104 Carbon Dioxide 15.9 L 19.5 L Anion Gap 13 11 BUN 13 10 Creatinine 0.9 0.9 Estim Creat Clear Calc 98.0 98.0 eGFR > 60 > 60 BUN/Creatinine Ratio 14 11 L Glucose 306 H 426 H* D Calculated Osmolality 284 285 Calcium 8.4 8.7 Corrected Calcium 9.0 9.3 Phosphorus 3.8 Magnesium 1.6 Total Bilirubin 1.7 H D 1.9 H AST 45 H 21 ALT 23 25 Alkaline Phosphatase 153 H D 167 H Total Protein 6.1 6.2 Albumin 3.2 L 3.2 L Globulin 2.9 3.0 Albumin/Globulin Ratio 1.1 L 1.1 L Beta-Hydroxybutyrate/Acetoacetate 0.1 Misc Test Result Platelets confirmed Platelets confirmed Blood Type O Positive Antibody Screen NEGATIVE Blood Bank Wristband ID Yes Blood Bank Comment PLATP Ready ABG Interpretation ABG results: 08/03/25 09:01 VBG pH 7.42 VBG pCO2 32 L VBG pO2 39 VBG Base Excess -3 Quality Measures Quality Measures none Assessment & Plan Assessment Current Active Medications: Generic Name Dose Route Start Last Admin Trade Name Freq PRN Reason Stop Dose Admin Acetaminophen 325 mg 08/03/25 12:17 Acetaminophen 325 Mg Tablet PO 08/31/25 08:04 Q6H PRN Fever >100.4 or Pain 1-5 Dextrose 25 ml 08/02/25 08:43 Dextrose 50%-Water Inj 50 Ml Syringe IV 09/01/25 08:42 Q15MIN PRN BG 50-70 responsive npo pt Dextrose 50 ml 08/02/25 08:43 Dextrose 50%-Water Inj 50 Ml Syringe IV 09/01/25 08:42 Q15MIN PRN BG <50 OR BG <70 & pt unresponsive Folic Acid 1 mg 08/03/25 09:00 08/03/25 08:23 Folic Acid 1 Mg Tablet PO 09/02/25 08:59 1 mg QDAY [facility] Administration Protocol Glucagon 1 mg 08/02/25 08:43 Glucagon Inj 1 Mg Vial IM Q15MIN PRN BG <70, and no IV access Insulin Degludec 40 unit 08/03/25 09:00 08/03/25 08:21 Insulin Degludec 5 Unit/0.05 Ml (Per 5 Units) SC 09/02/25 08:59 40 unit QDAY [facility] Administration Insulin Human Lispro 0 unit 08/02/25 11:30 08/03/25 12:03 Insulin Lispro (Admelog) 1 Unit/0.01 Ml Unit SC 09/01/25 11:29 6 unit ACHS [facility] Administration Protocol Insulin Human Lispro 10 unit 08/03/25 17:30 Insulin Lispro (Admelog) 1 Unit/0.01 Ml Unit SC 09/02/25 17:29 TIDWM [facility] Lactulose 30 gm 08/03/25 14:00 08/03/25 14:11 Lactulose Syrup 20 Gm/30 Ml Udc PO 09/02/25 13:59 30 gm TID [facility] Administration Protocol Rifaximin 550 mg 08/01/25 14:00 08/03/25 08:23 Rifaximin 550 Mg Tablet PO 08/08/25 13:59 550 mg BID [facility] Administration Spironolactone 100 mg 08/01/25 14:00 08/03/25 08:22 Spironolactone 25 Mg Tablet PO 08/31/25 13:59 100 mg QDAY [facility] Administration Thiamine HCl 100 mg 08/04/25 09:00 Thiamine 100 Mg Tablet PO 08/31/25 13:59 QDAY [facility] Tramadol HCl 50 mg 08/03/25 12:16 Tramadol Hcl 50 Mg Tablet PO 08/08/25 12:15 Q4HR PRN pain 6-10 Plan Patient is a 55 yo M with PMH of AUD causing liver cirrhosis and T2DM presenting to the ED for altered mentation from [facility]; he was admitted for decompensated cirrhosis and hepatic encephalopathy. #Thrombocytopenia 2/2 #Decompensated liver cirrhosis #Hepatic encephalopathy, resolved #Leukopenia #History of alcohol use disorder Patient was found to have altered mentation by hospital staff in [facility] and therefore he was brought to the ER; on exam patient only responds yes to questions. Patient has known history of cirrhosis secondary to AUD. Ammonia level was 202, platelet count was 30 on admission. Platelet counts consistent with cirrhosis. MELD score of 15 today, 6% mortality in 3 months Plan: - 1u platelets to be transfused today - Lactulose 30 qid, Rifaximin 550 mg BID, spironolactone 100 daily - Thiamine 100 daily and folic acid 1 g QD - As patient is not currently bleeding, we will hold off on giving platelets; reconsider if patient platelet levels maintain with evidence of bleeding. - Educated patient how to titrate lactulose with goal of 2-3 BM a day #Metabolic alkalosis On 08/03, patient noted to have bicarb of 15 in the a.m. and p.m. bicarb of 19. VBG 7.42 and BHB wnl as glucose in 300s. Likely 2/2 GI losses from BM on lactulose. Plan: - CTM renal panel - Titrate lactulose to 2-3 BM/day #IDDM2 Patient takes insulin and metformin on home regimen; A1c was 7.1 on 06/20/2025. Glucose on admission is 245. Plan: - Insulin degludec 40u, lispro 10u TIDWM, SSI step 3 - Hypoglycemia protocol in place, q6 glucose checks #R indirect inguinal hernia #Scrotal swelling Patient has scrotal swelling. Not in any pain on admission. Scrotal US showed moderate L hydrocele and R inguinal hernia in scrotum. Plan: - Recommend outpatient management and follow up - Pain scale: Tylenol 325 mg and tramadol 50 mg q4h prn Hospital management: Disposition: Med-Tele, platelet transfusion today DVT prophylaxis: SCD GI prophylaxis: not indicated Diet: 2g sodium, 1.8L fluid restriction Lines: PIV CODE STATUS: FULL CODE This case was discussed with my senior resident Dr. Wynn and attending physician, Dr. Hernandez. Irene Handy, DO Internal Medicine PGY-1 Senior Resident Attestation: The patient was alert and oriented x 4 this morning. He reported doing well. His blood sugar has been in the range on of 300-400. His diet was changed to carb consistent diet, and as his platelet was 13, 1 unit platelets were ordered. His insulin was adjusted with degludec at 40 units daily, insulin lispro 10 units 3 times daily with meal, and SSI step 3. Will continue to monitor his blood sugar, and once his blood sugar is less than 200, he will be discharged. I discussed with and supervised the marketing research intern physician involved in the care of this patient. I personally saw and examined the patient and discussed the assessment and plan with the entire medicine team, including my attending. I agree with the assessment and plan as documented above. Mynor Wynn MD PGY3 Internal Medicine Attending Provider Attestation/Addendum I have discussed and was present for the essential components of the history, physical examination, diagnosis, and treatment plan with the resident. I agree with the patient's care as documented by the resident and amended herein by me. Hari Hernandez DO. Although this document has been carefully reviewed, there may still be some phonetic and other typographical errors. These errors are purely grammatical due to imperfections in the software program and should not be construed in any way to compromise the substance of the patient's medical care during this visit.
--- NOTE | 2025-08-03 14:45 | PC.SS ---
Follow up note: blood sugars are high. Pt will return to [facility] upon dc.
[2025-08-03] MEDS: INSULIN LISPRO (AdmeLOG) 1 UNIT/0.01 ML UNIT 10 UNIT SC (17:02)
[2025-08-03] MEDS: INSULIN LISPRO (AdmeLOG) 1 UNIT/0.01 ML UNIT 5 UNIT SC (18:41)
[2025-08-03] MEDS: INSULIN DEGLUDEC 5 UNIT/0.05 ML (PER 5 UNITS) 10 UNIT SC (18:41)
[2025-08-04] VITALS (11 sets, daily range): BP systolic 132–139; BP diastolic 68–77; PULSE 59–98; RESP 15–99; TEMP 36.1–37.2; O2SAT 97–99; BMI 27.1
[2025-08-04 05:38] LABS: Basophils # (Auto) 0.0 Thou/mm3 (0.0-0.2); Basophils % (Auto) 0 % (0-2.5); Eosinophils # (Auto) 0.0 Thou/mm3 (0.0-0.5); Eosinophils % (Auto) 1 % (0-10); Hematocrit 34.1 % (41.0-53.0); Hemoglobin 11.6 g/dL (13.5-16.0); Immature Granulocytes Auto 0.01 Thou/mm3 (0.00-0.00); Lymphocytes # (Auto) 0.6 Thou/mm3 (1.0-4.8); Lymphocytes % (Auto) 26 % (10-50); Mean Corpuscular HGB Conc 34.0 g/dl (31.0-37.0); Mean Corpuscular Hemoglobin 26.8 pg (25.0-35.0); Mean Corpuscular Volume 79 fL (80-100); Monocytes # (Auto) 0.3 Thou/mm3 (0.0-0.8); Monocytes % (Auto) 14 % (0-12); Neutrophils # (Auto) 1.4 Thou/mm3 (1.8-7.7); Neutrophils % (Auto) 59 % (37-80); Nucleated Red Blood Cell # 0.00 Thou/mm3 (0.00-0.00); Nucleated Red Blood Cell % 0 /100 WBC (0); RDW Standard Deviation 40.9 fL (35.1-43.9); Red Blood Count 4.33 Miln/mm3 (4.50-5.90); White Blood Count 2.4 Thou/mm3 (3.8-10.6)
[2025-08-04 05:48] LABS: Platelet Count 29 Thou/mm3 (140-440)
[2025-08-04 06:08] LABS: Alanine Aminotransferase 22 U/L (10-49); Albumin, Serum 3.1 gm/dL (3.5-5.0); Albumin/Globulin Ratio 1.2 (1.2-2.2); Alkaline Phosphatase 174 U/L (46-116); Anion Gap 9 (7-16); Aspartate Amino Transferase 21 U/L (0-34); BUN/Creatinine Ratio 14 Ratio (12-20); Bilirubin,Total 1.7 mg/dL (0.3-1.2); Blood Urea Nitrogen 11 mg/dL (9-23); Calcium 8.5 mg/dL (8.3-10.6); Calcium (Corrected) 9.2 mg/dL (8.5-10.1); Carbon Dioxide 21.7 mMol/L (20.0-31.0); Chloride 107 mMol/L (98-107); Creatinine (Component) 0.8 mg/dL (0.6-1.3); Estimated Creatinine Clearance 110.3 mL/min (>60); Globulin 2.6 gm/dL (2.3-3.5); Glucose 282 mg/dL (74-106); Magnesium 1.5 mg/dL (1.6-2.6); Osmolality,Calculated 285 (275-295); Phosphorous 4.5 mg/dL (2.4-5.1); Potassium 3.7 mMol/L (3.4-5.1); Sodium 138 mMol/L (136-145); Total Protein 5.7 gm/dL (5.7-8.2); eGFR > 60 See Note
[2025-08-04 06:26] LABS: Path Review Blood Smear Sent to Pathologist; Slide Review Platelets confirmed
[2025-08-04] MEDS: LACTULOSE SYRUP 20 GM/30 ML UDC 30 GM PO ×3 (06:30→21:02)
[2025-08-04] MEDS: INSULIN LISPRO (AdmeLOG) 1 UNIT/0.01 ML UNIT 10 UNIT SC (07:48)
[2025-08-04] MEDS: INSULIN LISPRO (AdmeLOG) 1 UNIT/0.01 ML UNIT SC ×4 (07:49→21:05)
[2025-08-04] MEDS: INSULIN DEGLUDEC 5 UNIT/0.05 ML (PER 5 UNITS) 40 UNIT SC (08:10)
[2025-08-04] MEDS: THIAMINE 100 MG TABLET PO (08:11)
[2025-08-04] MEDS: SPIRONOLACTONE 25 MG TABLET 100 MG PO (08:11)
[2025-08-04] MEDS: FOLIC ACID 1 MG TABLET PO (08:11)
[2025-08-04] MEDS: MAGNESIUM OXIDE 400 MG TABLET PO (08:11)
[2025-08-04] MEDS: ACETAMINOPHEN 325 MG TABLET PO (08:11)
[2025-08-04] MEDS: INSULIN LISPRO (AdmeLOG) 1 UNIT/0.01 ML UNIT 15 UNIT SC ×2 (11:39→16:57)
--- NOTE | 2025-08-04 14:23 | ESPR_ITS ---
Documentation for date of: 08/04/25 Subjective Subjective Interval history: No acute overnight events. Patient seen and examined at bedside. Patient reports 2 bowel movements yesterday although charted 0. Patient endorses slight however improved dizziness, mild scrotal pain. No other complaints VSS. WBC stable low, hemoglobin 11.6, platelets 1:29 unit of platelets transfused last night. Bicarb now 21, blood glucose 257 in AM. Magnesium 1.5 started magnesium oxide 400 mg daily. Given elevated blood sugars, degludec now 25 units in a.m. and 25 units in p.m. with lispro 15 units TIDWM with SSI step 3. Pending improvement in blood glucose control prior to discharge. Exam Vital Signs Temp Pulse Resp BP Pulse Ox O2 Del Method 98.2 F 68 15 134/68 H 99 Room Air 08/04/25 12:00 08/04/25 12:00 08/04/25 12:00 08/04/25 12:00 08/04/25 12:00 08/04/25 12:00 Narrative Exam GENERAL: AOx3, no acute distress, lying down comfortably in bed HEENT: mucous membranes moist, bilateral sclera anicteric CARDIOVASCULAR: regular rate and rhythm, S1/S2 present, no murmurs appreciated PULMONARY: clear to auscultation bilaterally, no rales/rhonchi/wheezes ABDOMINAL: soft, non-tender, non-distended, no rebound/guarding, bowel sounds present, scrotal swelling EXTREMITIES: no peripheral edema SKIN: warm and dry, intact, no rashes NEURO: CN II-XII grossly intact, no focal deficits, alert, following commands Objective Labs 08/04/25 04:55 08/04/25 04:55 Labs: Laboratory Results - last 24 hr 08/03/25 08/04/25 12:20 04:55 WBC 2.4 L RBC 4.33 L Hgb 11.6 L Hct 34.1 L MCV 79 L MCH 26.8 MCHC 34.0 RDW Std Deviation 40.9 Plt Count 29 L* Neut % (Auto) 59 Lymph % (Auto) 26 [place] % (Auto) 14 H Eos % (Auto) 1 Baso % (Auto) 0 Neut # (Auto) 1.4 L Lymph # (Auto) 0.6 L [place] # (Auto) 0.3 Eos # (Auto) 0.0 Baso # (Auto) 0.0 Immature Gran # (Auto) 0.01 H Absolute Nucleated RBC 0.00 Immature Gran % 0 Nucleated RBC % 0 Smear Path Review Sent to Pathologist Sodium 138 Potassium 3.7 Chloride 107 Carbon Dioxide 21.7 Anion Gap 9 BUN 11 Creatinine 0.8 Estim Creat Clear Calc 110.3 eGFR > 60 BUN/Creatinine Ratio 14 Glucose 282 H D Calculated Osmolality 285 Calcium 8.5 Corrected Calcium 9.2 Phosphorus 4.5 Magnesium 1.5 L Total Bilirubin 1.7 H AST 21 ALT 22 Alkaline Phosphatase 174 H Total Protein 5.7 Albumin 3.1 L Globulin 2.6 Albumin/Globulin Ratio 1.2 Misc Test Result Platelets confirmed Blood Type O Positive Antibody Screen NEGATIVE Blood Bank Wristband ID Yes Blood Bank Comment PLATP Ready ABG Interpretation ABG results: 08/03/25 09:01 VBG pH 7.42 VBG pCO2 32 L VBG pO2 39 VBG Base Excess -3 Quality Measures Quality Measures none Assessment & Plan Assessment Current Active Medications: Generic Name Dose Route Start Last Admin Trade Name Freq PRN Reason Stop Dose Admin Acetaminophen 325 mg 08/03/25 12:17 08/04/25 08:11 Acetaminophen 325 Mg Tablet PO 08/31/25 08:04 325 mg Q6H PRN Administration Fever >100.4 or Pain 1-5 Dextrose 25 ml 08/02/25 08:43 Dextrose 50%-Water Inj 50 Ml Syringe IV 09/01/25 08:42 Q15MIN PRN BG 50-70 responsive npo pt Dextrose 50 ml 08/02/25 08:43 Dextrose 50%-Water Inj 50 Ml Syringe IV 09/01/25 08:42 Q15MIN PRN BG <50 OR BG <70 & pt unresponsive Folic Acid 1 mg 08/03/25 09:00 08/04/25 08:11 Folic Acid 1 Mg Tablet PO 09/02/25 08:59 1 mg QDAY SUZANNE Administration Protocol Glucagon 1 mg 08/02/25 08:43 Glucagon Inj 1 Mg Vial IM Q15MIN PRN BG <70, and no IV access Insulin Degludec 25 unit 08/04/25 21:00 Insulin Degludec 5 Unit/0.05 Ml (Per 5 Units) SC 09/03/25 20:59 BID [facility] Insulin Human Lispro 0 unit 08/02/25 11:30 08/04/25 11:40 Insulin Lispro (Admelog) 1 Unit/0.01 Ml Unit SC 09/01/25 11:29 5 unit ACHS SUZANNE Administration Protocol Insulin Human Lispro 15 unit 08/04/25 12:00 08/04/25 11:39 Insulin Lispro (Admelog) 1 Unit/0.01 Ml Unit SC 09/03/25 11:59 15 unit TIDWM SUZANNE Administration Lactulose 30 gm 08/03/25 14:00 08/04/25 13:25 Lactulose Syrup 20 Gm/30 Ml Udc PO 09/02/25 13:59 30 gm TID SUZANNE Administration Protocol Magnesium Oxide 400 mg 08/04/25 09:00 08/04/25 08:11 Magnesium Oxide 400 Mg Tablet PO 09/03/25 08:59 400 mg QDAY SUZANNE Administration Rifaximin 550 mg 08/01/25 14:00 08/04/25 08:11 Rifaximin 550 Mg Tablet PO 08/08/25 13:59 550 mg BID SUZANNE Administration Spironolactone 100 mg 08/01/25 14:00 08/04/25 08:11 Spironolactone 25 Mg Tablet PO 08/31/25 13:59 100 mg QDAY SUZANNE Administration Thiamine HCl 100 mg 08/04/25 09:00 08/04/25 08:11 Thiamine 100 Mg Tablet PO 08/31/25 13:59 100 mg QDAY SUZANNE Administration Tramadol HCl 50 mg 08/03/25 12:16 Tramadol Hcl 50 Mg Tablet PO 08/08/25 12:15 Q4HR PRN pain 6-10 Plan Latonia Prince 55M pmhx significant for cirrhosis 2/2 EtOH and IDDM2 presenting to [facility] ED 08/01 for altered mentation from [facility], admitted for decompensated cirrhosis and hepatic encephalopathy. #Hyperglycemia #IDDM2 Patient takes insulin and metformin on home regimen; A1c was 7.1 on 06/20/2025. Glucose on admission is 245. 12/5, glucose noted to be 400s. Plan: - Insulin degludec 25u in AM and 25u in PM, lispro 15u TIDWM, SSI step 3 - Hypoglycemia protocol in place, q6 glucose checks #Thrombocytopenia s/p 1u platelet transfusion 08/03 10/01 #Decompensated liver cirrhosis #Hepatic encephalopathy, resolved #Leukopenia #History of alcohol use disorder Patient was found to have altered mentation by hospital staff in [facility] and therefore he was brought to the ER; on exam patient only responds yes to questions. Patient has known history of cirrhosis secondary to AUD. Ammonia level was 202, platelet count was 30 on admission. Platelet counts consistent with cirrhosis. MELD score of 15 today, 6% mortality in 3 months Plan: - Lactulose 30 qid, Rifaximin 550 mg BID, spironolactone 100 daily - Thiamine 100 daily and folic acid 1 g QD - Educated patient how to titrate lactulose with goal of 2-3 BM a day #Metabolic alkalosis, resolved On 08/03, patient noted to have bicarb of 15 in the a.m. and p.m. bicarb of 19. VBG 7.42 and BHB wnl as glucose in 300s. Likely 2/2 GI losses from BM on lactulose. Plan: - CTM renal panel - Titrate lactulose to 2-3 BM/day #R indirect inguinal hernia #Scrotal swelling Patient has scrotal swelling. Not in any pain on admission. Scrotal US showed moderate L hydrocele and R inguinal hernia in scrotum. Plan: - Recommend outpatient management and follow up - Pain scale: Tylenol 325 mg and tramadol 50 mg q4h prn #Electrolyte abnormalities #Hypomagnesemia Plan: - Recheck and replete prn - Mag oxide 400 mg QD Hospital management: Disposition: Med-Tele, pending BG control and insulin adjustments DVT prophylaxis: SCD GI prophylaxis: not indicated Diet: 2g sodium, 1.8L fluid restriction, carb consistent Lines: PIV CODE STATUS: FULL CODE This case was discussed with my senior resident Dr. Wynn and attending physician, Dr. Hernandez. Irene Handy, DO Internal Medicine PGY-1 Senior Resident Attestation: The patient reported doing really good, and had 2 bowel movements over 24 hours. His blood sugar this morning was 250 7 in the morning, and 299 before lunch. His insulin degludec was increased to 25 units twice daily, and lispro 15 units 3 times daily, along with resistant sliding scale insulin. Will continue to monitor his blood sugar, and likely to discharge tomorrow if blood sugar is stable. I discussed with and supervised the biomedical engineering internship physician involved in the care of this patient. I personally saw and examined the patient and discussed the assessment and plan with the entire medicine team, including my attending. I agree with the assessment and plan as documented above. Mynor Wynn MD PGY3 Internal Medicine Attending Provider Attestation/Addendum I have discussed and was present for the essential components of the history, physical examination, diagnosis, and treatment plan with the resident. I agree with the patient's care as documented by the resident and amended herein by me. Hari Hernandez DO. Although this document has been carefully reviewed, there may still be some phonetic and other typographical errors. These errors are purely grammatical due to imperfections in the software program and should not be construed in any way to compromise the substance of the patient's medical care during this visit. Patient seen and evaluated this AM. Patient much improved today, mentation back to baseline, blood glucose 282 this morning, significant labs included WBC 2.4, hemoglobin 11.6 with stable, platelets did uptrend to 29 after transfusion yesterday, and bicarb up to 21 today. Patient's blood sugar has been elevated was 282 this morning, insulin uptitrated the patient now on degludec 25 units twice daily and lispro 15 units 3 times daily AC along with sliding scale. If glucose well-controlled tonight, likely could be DC'd tomorrow.
[2025-08-04] MEDS: INSULIN DEGLUDEC 5 UNIT/0.05 ML (PER 5 UNITS) 25 UNIT SC (21:04)
[2025-08-05] VITALS: BP 140/76; PULSE 64; RESP 18; TEMP 36.6; O2SAT 99
[2025-08-05 04:00] VITALS: BP 140/76; PULSE 65; PULSE 66; RESP 18; TEMP 36.5; O2SAT 100
[2025-08-05] MEDS: ACETAMINOPHEN 325 MG TABLET PO (05:52)
[2025-08-05] MEDS: LACTULOSE SYRUP 20 GM/30 ML UDC 30 GM PO (05:53)
[2025-08-05 06:00] VITALS: BMI 26.2
[2025-08-05] MEDS: INSULIN LISPRO (AdmeLOG) 1 UNIT/0.01 ML UNIT 15 UNIT SC (07:31)
[2025-08-05 07:58] VITALS: BP 142/82; PULSE 66; RESP 16; TEMP 36.4; O2SAT 99
[2025-08-05 08:00] VITALS: PULSE 62
[2025-08-05] MEDS: INSULIN DEGLUDEC 5 UNIT/0.05 ML (PER 5 UNITS) 25 UNIT SC (08:07)
[2025-08-05 08:08] VITALS: BP 142/82; PULSE 66
[2025-08-05] MEDS: FOLIC ACID 1 MG TABLET PO (08:08)
[2025-08-05] MEDS: SPIRONOLACTONE 25 MG TABLET 100 MG PO (08:08)
[2025-08-05] MEDS: THIAMINE 100 MG TABLET PO (08:08)
[2025-08-05] MEDS: MAGNESIUM OXIDE 400 MG TABLET PO ×2 (08:08→10:13)
[2025-08-05 08:48] LABS: Basophils # (Auto) 0.0 Thou/mm3 (0.0-0.2); Basophils % (Auto) 1 % (0-2.5); Eosinophils # (Auto) 0.1 Thou/mm3 (0.0-0.5); Eosinophils % (Auto) 2 % (0-10); Hematocrit 39.9 % (41.0-53.0); Hemoglobin 13.1 g/dL (13.5-16.0); Immature Granulocytes Auto 0.01 Thou/mm3 (0.00-0.00); Lymphocytes # (Auto) 0.8 Thou/mm3 (1.0-4.8); Lymphocytes % (Auto) 23 % (10-50); Mean Corpuscular HGB Conc 32.8 g/dl (31.0-37.0); Mean Corpuscular Hemoglobin 26.3 pg (25.0-35.0); Mean Corpuscular Volume 80 fL (80-100); Monocytes # (Auto) 0.3 Thou/mm3 (0.0-0.8); Monocytes % (Auto) 9 % (0-12); Neutrophils # (Auto) 2.2 Thou/mm3 (1.8-7.7); Neutrophils % (Auto) 64 % (37-80); Nucleated Red Blood Cell # 0.00 Thou/mm3 (0.00-0.00); Nucleated Red Blood Cell % 0 /100 WBC (0); RDW Standard Deviation 41.3 fL (35.1-43.9); Red Blood Count 4.98 Miln/mm3 (4.50-5.90); White Blood Count 3.4 Thou/mm3 (3.8-10.6)
[2025-08-05 08:58] LABS: Platelet Count 35 Thou/mm3 (140-440)
[2025-08-05 09:19] LABS: Alanine Aminotransferase 29 U/L (10-49); Albumin, Serum 3.4 gm/dL (3.5-5.0); Albumin/Globulin Ratio 1.0 (1.2-2.2); Alkaline Phosphatase 141 U/L (46-116); Anion Gap 11 (7-16); Aspartate Amino Transferase 31 U/L (0-34); BUN/Creatinine Ratio 11 Ratio (12-20); Bilirubin,Total 2.7 mg/dL (0.3-1.2); Blood Urea Nitrogen 10 mg/dL (9-23); Calcium 8.7 mg/dL (8.3-10.6); Calcium (Corrected) 9.2 mg/dL (8.5-10.1); Carbon Dioxide 23.5 mMol/L (20.0-31.0); Chloride 104 mMol/L (98-107); Creatinine (Component) 0.9 mg/dL (0.6-1.3); Estimated Creatinine Clearance 98.0 mL/min (>60); Globulin 3.5 gm/dL (2.3-3.5); Glucose 198 mg/dL (74-106); Magnesium 1.4 mg/dL (1.6-2.6); Osmolality,Calculated 280 (275-295); Potassium 3.9 mMol/L (3.4-5.1); Sodium 138 mMol/L (136-145); Total Protein 6.9 gm/dL (5.7-8.2); eGFR > 60 See Note
--- NOTE | 2025-08-05 09:23 | PD.RESPRO ---
Documentation for date of: 08/05/25 Exam Vital Signs Temp Pulse Resp BP Pulse Ox O2 Del Method 97.5 F 66 16 142/82 H 99 Room Air 08/05/25 07:58 08/05/25 08:08 08/05/25 07:58 08/05/25 08:08 08/05/25 07:58 08/05/25 07:58 Objective Labs 08/05/25 08:24 08/04/25 04:55 Labs: Laboratory Results - last 24 hr 08/05/25 08:24 WBC 3.4 L D RBC 4.98 Hgb 13.1 L Hct 39.9 L MCV 80 MCH 26.3 MCHC 32.8 RDW Std Deviation 41.3 Plt Count 35 L D Neut % (Auto) 64 Lymph % (Auto) 23 [place] % (Auto) 9 Eos % (Auto) 2 Baso % (Auto) 1 Neut # (Auto) 2.2 Lymph # (Auto) 0.8 L [place] # (Auto) 0.3 Eos # (Auto) 0.1 Baso # (Auto) 0.0 Immature Gran # (Auto) 0.01 H Absolute Nucleated RBC 0.00 Immature Gran % 0 Nucleated RBC % 0 ABG Interpretation ABG results: 08/03/25 09:01 VBG pH 7.42 VBG pCO2 32 L VBG pO2 39 VBG Base Excess -3 Quality Measures Quality Measures none Assessment & Plan Assessment Current Active Medications: Generic Name Dose Route Start Last Admin Trade Name Cornelio PRN Reason Stop Dose Admin Acetaminophen 325 mg 08/03/25 12:17 08/05/25 05:52 Acetaminophen 325 Mg Tablet PO 08/31/25 08:04 325 mg Q6H PRN Administration Fever >100.4 or Pain 1-5 Dextrose 25 ml 08/02/25 08:43 Dextrose 50%-Water Inj 50 Ml Syringe IV 09/01/25 08:42 Q15MIN PRN BG 50-70 responsive npo pt Dextrose 50 ml 08/02/25 08:43 Dextrose 50%-Water Inj 50 Ml Syringe IV 09/01/25 08:42 Q15MIN PRN BG <50 OR BG <70 & pt unresponsive Folic Acid 1 mg 08/03/25 09:00 08/05/25 08:08 Folic Acid 1 Mg Tablet PO 09/02/25 08:59 1 mg QDAY SUZANNE Administration Protocol Glucagon 1 mg 08/02/25 08:43 Glucagon Inj 1 Mg Vial IM Q15MIN PRN BG <70, and no IV access Insulin Degludec 25 unit 08/04/25 21:00 08/05/25 08:07 Insulin Degludec 5 Unit/0.05 Ml (Per 5 Units) SC 09/03/25 20:59 25 unit BID SUZANNE Administration Insulin Human Lispro 0 unit 08/02/25 11:30 08/05/25 07:26 Insulin Lispro (Admelog) 1 Unit/0.01 Ml Unit SC 09/01/25 11:29 Not Given ACHS SUZANNE Protocol Insulin Human Lispro 15 unit 08/04/25 12:00 08/05/25 07:31 Insulin Lispro (Admelog) 1 Unit/0.01 Ml Unit SC 09/03/25 11:59 15 unit TIDWM SUZANNE Administration Lactulose 30 gm 08/03/25 14:00 08/05/25 05:53 Lactulose Syrup 20 Gm/30 Ml Udc PO 09/02/25 13:59 30 gm TID SUZANNE Administration Protocol Magnesium Oxide 400 mg 08/04/25 09:00 08/05/25 08:08 Magnesium Oxide 400 Mg Tablet PO 09/03/25 08:59 400 mg QDAY SUZANNE Administration Rifaximin 550 mg 08/01/25 14:00 08/05/25 08:08 Rifaximin 550 Mg Tablet PO 08/08/25 13:59 550 mg BID SUZANNE Administration Spironolactone 100 mg 08/01/25 14:00 08/05/25 08:08 Spironolactone 25 Mg Tablet PO 08/31/25 13:59 100 mg QDAY SUZANNE Administration Thiamine HCl 100 mg 08/04/25 09:00 08/05/25 08:08 Thiamine 100 Mg Tablet PO 08/31/25 13:59 100 mg QDAY SUZANNE Administration Tramadol HCl 50 mg 08/03/25 12:16 Tramadol Hcl 50 Mg Tablet PO 08/08/25 12:15 Q4HR PRN pain 6-10
[2025-08-05 09:32] VITALS: PULSE 67; RESP 16; RESP 97
[2025-08-05 11:42] LABS: Slide Review Platelets confirmed
--- NOTE | 2025-08-05 11:54 | ESDS_ITS ---
<Statement entered by Sage Coon MD - 08/05/25 15:34> I saw and examined patient personally and supervised PGY 1 resident, Dr. Mayer with formulating a management plan. I agree with the documentation as listed below. Plan of care discussed with Attending Dr. David Coon MD PGY 2 Disclaimer: This note was dictated by speech recognition. Minor errors in dry pan feeder may be present due to voice recognition software. Planned Discharge Date 08/05/25 DS: Providers Provider Date of admission: 08/01/25 07:55 Primary care physician: Elzbieta Quezada([facility])MD Admitting Provider: Guilherme Hernandez DO Attending Provider on Admission: Guilherme Hernandez DO Attending Provider on DC: Guilherme Hernandez DO Discharging Provider: Guilherme Hernandez DO DS: Diagnosis Problem List Completed Was Problem List Reviewed/Reconciled?: Yes Hospital Course Hospital Course Hospital course: Hospital Course: Patient is a 55 yo M with PMH of alcohol use disorder, liver cirrhosis with re current hepatic encephalopathy, T2DM, inguinal hernia presenting [facility] ED from [facility] accompanied by law enforcement with chief complaint of altered mentation on 08/01/25. Patient was seen to be altered; not answering questions or responding to commands. Labs notable for alk phos 129, ammonia 202, tox screen negative. patient admitted for management of hepatic encephalopathy 08/01/25. On 08/02/25, patient's inguinal hernia attempted to be reduced however unable to. Ultrasound shows moderate left hydrocele and right inguinal hernia in scrotum. Continue hepatic encephalopathy treatment such as lactulose rifaximin and spironolactone. On 08/03/25, transfused 1 unit platelets due to critically low platelet count. On 08/04/25, given elevated blood sugars increased insulin. On 08/05/25, BG was 198; patient was considered stable for discharge today. Discharge Instructions: ? We have increased your long-acting insulin to 25 units twice a day. - We have scheduled your short acting insulin to 10U three times a day with meals. Check your blood glucose before meals, if it is less than 150 do not take your short acting insulin. - Continue lactulose 30 g three times a day with goal of 2-3 bowel movements a day, reduce frequency if >4 bowel movements a day. You can increase to 4 times a day if you are constipated. - Continue rifaximin 550 mg twice daily - Continue the rest of your home medication as before - Please follow up with your PCP within one week of discharge - Please follow up with your GI and track subway repair supervisor within one week of discharge - If your symptoms worsen, please seek immediate medical attention and return to your nearest emergency room. - If you do not have a PCP, you may follow up at the [facility] at [address] [place] [address] [address] [address], Problem List: #Hyperglycemia #IDDM2 #Thrombocytopenia s/p 1u platelet transfusion 08/03 10/01 #Decompensated liver cirrhosis #Hepatic encephalopathy, resolved #Leukopenia #History of alcohol use disorder #Metabolic alkalosis, resolved #R indirect inguinal hernia #Scrotal swelling #Electrolyte abnormalities #Hypomagnesemia Status at Discharge Overall status at discharge: patient is progressing back to baseline Time Spent with Patient Time attestation: Total time spent providing and/or coordinating discharge services: Time spent: Greater than 30 minutes Exam Vital Signs Temp Pulse Resp BP Pulse Ox O2 Del Method 97.5 F 67 16 142/82 H 99 Room Air 08/05/25 07:58 08/05/25 09:32 08/05/25 09:32 08/05/25 08:08 08/05/25 07:58 08/05/25 07:58 Narrative Exam GENERAL: AOx3, no acute distress, lying down comfortably in bed HEENT: mucous membranes moist, bilateral sclera anicteric CARDIOVASCULAR: regular rate and rhythm, S1/S2 present, no murmurs appreciated PULMONARY: clear to auscultation bilaterally, no rales/rhonchi/wheezes ABDOMINAL: soft, non-tender, non-distended, no rebound/guarding, bowel sounds present, scrotal swelling EXTREMITIES: no peripheral edema SKIN: warm and dry, intact, no rashes NEURO: CN II-XII grossly intact, no focal deficits, alert, following commands Discharge Plan Plan Patient Disposition: Half-Way/Court/Law Patient condition on transfer: Stable Care Plan Goals: ? We have increased your long-acting insulin to 25 units twice a day. - We have scheduled your short acting insulin to 10U three times a day with brenden lucho. Check your blood glucose before meals, if it is less than 150 do not take your short acting insulin. - Continue lactulose 30 g three times a day with goal of 2-3 bowel movements a day, reduce frequency if >4 bowel movements a day. You can increase to 4 times a day if you are constipated. - Continue rifaximin 550 mg twice daily - Continue the rest of your home medication as before - Please follow up with your PCP within one week of discharge - Please follow up with your GI and track subway repair supervisor within one week of discharge - If your symptoms worsen, please seek immediate medical attention and return to your nearest emergency room. - If you do not have a PCP, you may follow up at the [facility] at [facility] [address], [facility] [address], Prescriptions/Referrals Prescriptions/Med Rec: New magnesium oxide 400 mg (241.3 mg magnesium) Tablet 400 mg PO QDAY 30 Days Qty: 30 0RF Continued spironolactone 100 mg Tablet 100 mg PO QDAY folic acid 1 mg tablet 1 mg PO QDAY Qty: 30 0RF thiamine HCl (vitamin B1) 100 mg tablet 100 mg PO QDAY Qty: 30 0RF rifaximin 550 mg tablet 550 mg PO BID Qty: 60 0RF lactulose 10 gram/15 mL solution 30 g PO TID Qty: 3000 0RF pantoprazole [Protonix] 40 mg tablet,delayed release (DR/EC) 40 mg PO QDAY Qty: 10 0RF Changed insulin glargine [Lantus U-100 Insulin] 100 unit/mL solution 25 unit subcut BID Qty: 10 2RF Humulin R Regular U-100 Insuln 100 unit/mL solution 10 unit subcut TIDWM 30 Days Qty: 0 2RF Referrals: Pilar([facility])Elzbieta MD [Primary Care Provider] Patient/Caregiver Discharge Instructions Discharge Activity: activity as tolerated Education Materials: Hepatic Encephalopathy Print Language: Indian Discharge Order Discharge Orders: Discharge (Routine); Ordered 08/05/25 Ordered By: Sage Coon Quality Discharge Quality Measures none MD Attestestation MD Attestation I have discussed and was present for the essential components of the discharge history, physical examination, diagnosis, and discharge treatment plan with the resident. I agree with the patient's discharge care as documented by the resident and amended herein by me. Hari Hernandez DO. The patient understood all discharge instructions, all questions were answered satisfactorily. The patient was instructed to return to the Emergency Department is symptoms worsened or persisted. Patient's blood glucose significantly improved, hepatic encephalopathy had resolved completely, patient's home insulin adjusted, will send the patient on Lantus 25 units twice daily and lispro 10 units 3 times daily AC along with sliding scale. Patient will also need hepatology follow-up for continued management of his liver cirrhosis. Patient was stable, afebrile, tolerating p.o. intake at time of discharge. Although this document has been carefully reviewed, there may still be some phonetic and other typographical errors. These errors are purely grammatical due to imperfections in the software program and should not be construed in any way to compromise the substance of the patient's medical care during this visit.
== END 2025-08-05 11:07 | DRG 279 ==
LOC: SERX 07:29 → SERHOLD 08:03 → S3SX 10:01
PROVIDERS: Emergency Medicine; Admitting Provider Student in an Organized Health Care Education/Training Program; Emergency Provider Emergency Medicine; PCP Internal Medicine; Visit Provider Student in an Organized Health Care Education/Training Program
DX: K72.10 Chronic hepatic failure without coma (principal); K76.82 Hepatic encephalopathy; D61.818 Other pancytopenia; E87.3 Alkalosis; Z79.4 Long term (current) use of insulin; D69.59 Other secondary thrombocytopenia; E11.65 Type 2 diabetes mellitus with hyperglycemia; E83.42 Hypomagnesemia; N43.3 Hydrocele, unspecified; K40.90 Unilateral inguinal hernia, without obstruction or gangrene, not specified as recurrent; K70.30 Alcoholic cirrhosis of liver without ascites; F10.10 Alcohol abuse, uncomplicated
CPT/HCPCS: 36415; 51701; 76870; 80048; 80053; 80307; 80320; 81001; 82010; 82140; 82803; 83036; 83735; 84100; 84484; 85025; 85610; 86850; 86900; 86901; 86965; 87081; 93225; 96360; 99283; J1815; J3411; J3475; J3490; J7999; P9035; A9270; G0480